=== PATIENT | female | born 1960 | race African-American/Black ===

== ENCOUNTER 2017-09-12 14:09 | Emergency (ER) | payer SELFPAY ==
[~2017-09-12 14:09] MED LIST: ACET325T11 PO; CIPR500T4 PO; CYCL-36 PO; FERR324T4 PO; FOLI1 PO; METO25 PO; PRIL40CA PO; SM A81CH CHEW
[2017-09-12 14:40] VITALS: BP 150/73; PULSE 79; RESP 22; TEMP 98; O2SAT 98
[2017-09-13] MEDS ORDERED: ASPI81TA16 PO (12:30)
[2017-09-13] MEDS ORDERED: PSYCH MEDS (12:33)
[2017-09-13] MEDS ORDERED: PANT40TA3 PO (16:03)
[2017-09-13] MEDS ORDERED: METO25TA3 PO (16:03)
--- NOTE | 2017-10-02 19:17 | PD ---
HPI Chief Complaint: Abdominal Pain Time Seen by Provider: 14:33 Travel History International Travel<30 days: No Contact w/Intl Traveler<30days: No Traveled to known affect area: No History of Present Illness HPI 57-year-old female presents emergency department for evaluation of abdominal pain that bands around her abdomen. This began yesterday. She reports no nausea or vomiting. Uncertain of fever. No diarrhea. Patient denies any abdominal surgeries. Pain is a constant, ache with intermittent sharp stabbing pains. She has no other symptoms to report. PFSH Past Medical History Anxiety: No Cardiovascular Problems: Yes Diminished Hearing: No Hypertension: Yes Reproductive: Yes (PELVIC MASS DX 12/01/05 NEVER FOLLOWED UP WITH DOCTOR) Menopausal: Yes : 3 Para: 3 Tubal Ligation: Yes Past Surgical History Appendectomy: No Cardiac Surgery: Yes (HEART VALVE REPLACEMENT) Social History Alcohol Use: Yes (SIX PACK ON THE WEEKENDS) Tobacco Use: Yes (PACK DAILY) Substance Use: No Allergies-Medications (Allergen,Severity, Reaction): Coded Allergies: No Known Allergies (Verified Allergy, Unknown, 09/13/17) Reported Meds & Prescriptions Reported Meds & Active Scripts Active Pantoprazole (Pantoprazole Sodium) 40 Mg Tab 40 Mg PO DAILY 30 Days Metoprolol Tartrate 25 Mg Tab 25 Mg PO Q12HR 30 Days Reported [Psych Meds] Aspirin Adult Low Strength (Aspirin) 81 Mg Tabdr 81 Mg PO DAILY Review of Systems Except as stated in HPI: all other systems reviewed are Neg Physical Exam Narrative This is a well-nourished female patient. she appears nontoxic. She has even unlabored respirations. Her heart rate is normal. She has no obvious deformities. She walks with a non-ataxic gait. She speaks to me clearly. MDM Medical Decision Making Medical Screen Exam Complete: Yes Emergency Medical Condition: Yes Medical Record Reviewed: Yes Differential Diagnosis Cholecystitis versus pancreatitis versus gastritis Narrative Course 57-year-old female presents emergency department for evaluation of abdominal pain. Patient appears without distress. Her vital signs are stable. Workup is initiated in triage. Prior to patient being placed in a medical bed, patient chooses to leave. AMA: The risks of leaving against medical advice without further evaluation treatment were discussed with the patient. These risks include cardiac dysfunction, cardiac dysrhythmia, possible heart attack, possible stroke or . The patient indicated understanding of these risks and appeared to have the capacity to make this decision. Diagnosis Primary Impression: Abdominal pain Patient Instructions: General Instructions Departure Forms: Tests/Procedures Disposition: 07 AGAINST MEDICAL ADVICE Condition: Stable JoséYsabel TIPTON Oct 02, 2017 19:16
== END 2017-09-12 16:06 | disposition left against medical advice (07) ==
LOC: NED 14:09
DX: R10.9 Unspecified abdominal pain (principal); I10 Essential (primary) hypertension; F17.210 Nicotine dependence, cigarettes, uncomplicated
CPT/HCPCS: 99281

== ENCOUNTER 2017-09-12 18:07 | Observation (INO) | payer SELFPAY ==
[2017-09-12 18:25] VITALS: BP 154/80; PULSE 78; RESP 20; TEMP 97.7; O2SAT 95
[2017-09-12 20:25] LABS: AMORPHOUS SEDIMENT, URINE RARE; BILIRUBIN, URINE NEG (NEG); BLOOD, URINE NEG (NEG); GLUCOSE,URINE NEG (NEG); KETONE, URINE NEG (NEG); MUCUS URINE FEW /lpf (OCC); NITRITE,URINE NEG (NEG); PH, URINE 5.5 (5.0-8.5); SQUAMOUS EPITHELIAL CELL URINE 5 /hpf (0-5); URINE COLOR YELLOW (YELLW/STRAW); URINE LEUKOCYTE ESTERASE NEG (NEG)
[2017-09-12 20:35] LABS: AUTOMATED NEUTROPHIL # 4.3 TH/MM3 (1.8-7.7); BASOPHIL # 0.1 TH/MM3 (0-0.2); EOSINOPHIL # 0.2 TH/MM3 (0-0.4); EOSINOPHIL % 2.2 % (0.0-4.0); HEMATOCRIT 44.2 % (35.0-46.0); HEMOGLOBIN 14.5 GM/DL (11.6-15.3); LYMPH % 36.1 % (9.0-44.0); LYMPHOCYTE # 3.1 TH/MM3 (1.0-4.8); MEAN CELL VOLUME 103.6 FL (80.0-100.0); MEAN CORPUSCULAR HGB CONC 32.8 % (32.0-36.0); MEAN PLATELET VOLUME 9.5 FL (7.0-11.0); MONO % 10.5 % (0.0-8.0); MONOCYTE # 0.9 TH/MM3 (0-0.9); NEUT % 50.2 % (16.0-70.0); PLATELET COUNT 216 TH/MM3 (150-450); RED BLOOD COUNT 4.26 MIL/MM3 (4.00-5.30); RED CELL DISTRIBUTION WIDTH 12.9 % (11.6-17.2); WHITE BLOOD COUNT 8.5 TH/MM3 (4.0-11.0)
[2017-09-12 20:37] LABS: PROTHROMBIN TIME - PATIENT 10.1 SEC (9.8-11.6)
[2017-09-12 20:59] LABS: ALT (GPT) 10 U/L (10-53)
[2017-09-12 21:00] LABS: ALBUMIN 3.9 GM/DL (3.4-5.0); AST (GOT) 17 U/L (15-37); BICARBONATE 23.2 MEQ/L (21.0-32.0); BLOOD UREA NITROGEN 14 MG/DL (7-18); CALCIUM 9.3 MG/DL (8.5-10.1); CHLORIDE 108 MEQ/L (98-107); CREATININE 0.83 MG/DL (0.50-1.00); GLOMERULAR FILTRATION RATE 86 ML/MIN (>89); GLUCOSE,RANDOM 78 MG/DL (74-106); SODIUM (NA) 138 MEQ/L (136-145)
[2017-09-12 21:01] LABS: ALKALINE PHOSPHATASE 91 U/L (45-117); TOTAL BILIRUBIN ADULT 0.4 MG/DL (0.2-1.0); TOTAL PROTEIN 8.3 GM/DL (6.4-8.2)
[2017-09-12 22:01] LABS: TOXIC VACUOLATION PRESENT (NONE SEEN)
--- NOTE | 2017-09-12 22:55 | PD ---
HPI Chief Complaint: Abdominal Pain Time Seen by Provider: 22:43 Travel History International Travel<30 days: No Contact w/Intl Traveler<30days: No Traveled to known affect area: No History of Present Illness HPI The patient is a 57-year-old [place] female who presents to the emergency department for 2 days of bilateral upper thoracic back pain that radiates around to the front of the chest. The patient states the pain is sharp , intermittent, lasts approximately 2 minutes, is worse with turning to the left as well as deep inspiration. She does note a productive cough producing white sputum that is chronic. She does have a history of tobacco use. She denies any nausea, vomiting, diarrhea, or upper abdominal pain. The patient does have a history of CAD with previous CABG, however, states this pain is significantly different. She denies any shortness of breath or diaphoresis. Her symptoms are not exertional. She does complain of bilateral leg pain with walking, however, notes that is chronic. The patient states her CABG was performed in [place], [place], she does not have a local primary physician. The patient states she is currently homeless. PFSH Past Medical History Anxiety: No Cardiovascular Problems: Yes Diminished Hearing: No Hypertension: Yes Reproductive: Yes (PELVIC MASS DX 12/01/05 NEVER FOLLOWED UP WITH DOCTOR) Menopausal: Yes : 3 Para: 3 Tubal Ligation: Yes Past Surgical History Appendectomy: No Cardiac Surgery: Yes (HEART VALVE REPLACEMENT) Social History Alcohol Use: Yes (SIX PACK ON THE WEEKENDS) Tobacco Use: Yes (PACK DAILY) Substance Use: No Allergies-Medications (Allergen,Severity, Reaction): Coded Allergies: No Known Allergies (Verified Allergy, Unknown, 09/13/17) Reported Meds & Prescriptions Reported Meds & Active Scripts Active Cipro (Ciprofloxacin HCl) 500 Mg Tab 500 Mg PO BID Metoprolol Tartrate 25 mg (Metoprolol Tartrate) 25 Mg Tab 1 Tab PO DAILY Flexeril (Cyclobenzaprine HCl) 10 Mg Tab 10 Mg PO TID Prilosec 40 mg cap (Omeprazole) 40 Mg Cap 40 Mg PO DAILY Reported Tylenol 325 Mg Tab (Acetaminophen) 325 Mg Tab 325 Mg PO Q6H PRN Folate 1 Mg Tab (Folic Acid) 1 Mg Tab 1 Mg PO DAILY Ferrous Sulfate 325 Mg Tab 325 Mg PO BID Aspirin 81 Mg Tab 81 Mg CHEW DAILY Review of Systems Except as stated in HPI: all other systems reviewed are Neg General / Constitutional: No: Fever HENT: No: Lightheadedness Cardiovascular: Positive: Chest Pain or Discomfort Respiratory: No: Shortness of Breath Gastrointestinal: No: Nausea, Vomiting, Abdominal Pain Musculoskeletal: Positive: Pain, No: Edema Neurologic: No: Dizziness Physical Exam Narrative GENERAL: Awake, alert, pleasant 57-year-old female who appears her stated age and is in no acute respiratory distress. SKIN: Focused skin assessment warm/dry. HEAD: Atraumatic. Normocephalic. EYES: No injection or drainage.. ENT: No nasal bleeding or discharge. Mucous membranes pink and moist. NECK: Trachea midline. No JVD. CARDIOVASCULAR: Regular rate and rhythm. No murmur appreciated. Well-healed sternal scar. RESPIRATORY: No accessory muscle use. Clear to auscultation. Breath sounds equal bilaterally. GASTROINTESTINAL: Abdomen soft, non-tender, nondistended. Negative Elena's. No guarding or rigidity. Back: No tenderness over thoracic or lumbar vertebrae. Mild tenderness in the right para rhomboid area. Rotation of the thorax reproduces symptoms. MUSCULOSKELETAL: No obvious deformities. No clubbing. No cyanosis. No edema. NEUROLOGICAL: Awake and alert. No obvious cranial nerve deficits. Motor grossly within normal limits. Normal speech. PSYCHIATRIC: Appropriate mood and affect; insight and judgment normal. Data Data Last Documented VS Vital Signs Date Time Temp Pulse Resp B/P (MAP) Pulse Ox O2 Delivery O2 Flow Rate FiO2 09/12/17 18:25 97.7 78 20 154/80 (104) 95 Orders Orders Complete Blood Count With Diff (09/12/17 18:27) Comprehensive Metabolic Panel (09/12/17 18:27) Lipase (09/12/17 18:27) Prothrombin Time / Inr (Pt) (09/12/17 18:27) Act Partial Throm Time (Ptt) (09/12/17 18:27) Urinalysis - C+S If Indicated (09/12/17 18:27) Electrocardiogram (09/12/17 18:27) Chest, Single Ap (09/12/17 ) Troponin I (09/12/17 22:49) Creatine Kinase (Cpk) (09/12/17 22:49) Acetamin-Hydrocod 325-5 Mg ([place] 5-325 (09/12/17 23:00) Aspirin Chew (Aspirin Chew) (09/12/17 23:00) Nitroglycerin 2% Oint (Nitroglycerin 2% (09/13/17 00:00) Place In Observation (09/13/17 ) Vital Signs (Adult) Q4H (09/13/17 00:17) Activity Oob With Assistance (09/13/17 00:17) Rn Psych / Telemetry .CONTINUOUS (09/13/17 00:17) Diet Heart Healthy (09/13/17 Breakfast) Sodium Chloride 0.9% Flush (Ns Flush) (09/13/17 00:30) Sodium Chloride 0.9% Flush (Ns Flush) (09/13/17 09:00) Creatine Kinase (Cpk) (09/13/17 05:00) Creatine Kinase (Cpk) (09/13/17 11:00) Troponin I (09/13/17 05:00) Troponin I (09/13/17 11:00) Electrocardiogram (09/13/17 05:00) Electrocardiogram (09/13/17 11:00) Case Management Consult (09/13/17 00:17) Naloxone Inj (Narcan Inj) (09/13/17 00:30) Consult Cardiology (09/13/17 ) Aspirin Ec (Ecotrin Ec) (09/13/17 09:00) Nitroglycerin Sl (Nitrostat Sl) (09/13/17 00:30) Admit Order (Ed Use Only) (09/13/17 00:21) Labs Laboratory Tests Test 09/12/17 19:04 09/12/17 23:08 White Blood Count 8.5 TH/MM3 Red Blood Count 4.26 MIL/MM3 Hemoglobin 14.5 GM/DL Hematocrit 44.2 % Mean Corpuscular Volume 103.6 FL Mean Corpuscular Hemoglobin 34.0 PG Mean Corpuscular Hemoglobin Concent 32.8 % Red Cell Distribution Width 12.9 % Platelet Count 216 TH/MM3 Mean Platelet Volume 9.5 FL Neutrophils (%) (Auto) 50.2 % Lymphocytes (%) (Auto) 36.1 % Monocytes (%) (Auto) 10.5 % Eosinophils (%) (Auto) 2.2 % Basophils (%) (Auto) 1.0 % Neutrophils # (Auto) 4.3 TH/MM3 Lymphocytes # (Auto) 3.1 TH/MM3 Monocytes # (Auto) 0.9 TH/MM3 Eosinophils # (Auto) 0.2 TH/MM3 Basophils # (Auto) 0.1 TH/MM3 CBC Comment AUTO DIFF Differential Comment AUTO DIFF CONFIRMED Toxic Vacuolation PRESENT Platelet Estimate NORMAL Platelet Morphology Comment NORMAL Prothrombin Time 10.1 SEC Prothromb Time International Ratio 1.0 RATIO Activated Partial Thromboplast Time 22.8 SEC Urine Color YELLOW Urine Turbidity CLEAR Urine pH 5.5 Urine Specific [place] 1.020 Urine Protein NEG mg/dL Urine Glucose (UA) NEG mg/dL Urine Ketones NEG mg/dL Urine Occult Blood NEG Urine Nitrite NEG Urine Bilirubin NEG Urine Urobilinogen 2.0 MG/DL Urine Leukocyte Esterase NEG Urine RBC 3 /hpf Urine WBC 1 /hpf Urine Squamous Epithelial Cells 5 /hpf Urine Amorphous Sediment RARE Urine Mucus FEW /lpf Microscopic Urinalysis Comment CULT NOT INDICATED Blood Urea Nitrogen 14 MG/DL Creatinine 0.83 MG/DL Random Glucose 78 MG/DL Total Protein 8.3 GM/DL Albumin 3.9 GM/DL Calcium Level 9.3 MG/DL Alkaline Phosphatase 91 U/L Aspartate Amino Transf (AST/SGOT) 17 U/L Alanine Aminotransferase (ALT/SGPT) 10 U/L Total Bilirubin 0.4 MG/DL Sodium Level 138 MEQ/L Potassium Level 4.0 MEQ/L Chloride Level 108 MEQ/L Carbon Dioxide Level 23.2 MEQ/L Anion Gap 7 MEQ/L Estimat Glomerular Filtration Rate 86 ML/MIN Lipase 147 U/L Total Creatine Kinase 162 U/L Troponin I 0.08 NG/ML MDM Medical Decision Making Medical Screen Exam Complete: Yes Emergency Medical Condition: Yes Medical Record Reviewed: Yes Interpretation(s) EKG reveals normal sinus rhythm with a rate of 70. Inverted T waves noted in lead V4, V5, V6, 1, and aVL. No significant changes compared to EKG performed on June 04, 2014. Last Impressions Chest X-Ray 09/12/17 0000 Signed Impressions: Service Date/Time: Tuesday, September 12, 2017 22:57 - CONCLUSION: Cardiomegaly. The lungs are clear. Heriberto Jacobo MD Laboratory Tests Test 09/12/17 19:04 09/12/17 23:08 White Blood Count 8.5 TH/MM3 Red Blood Count 4.26 MIL/MM3 Hemoglobin 14.5 GM/DL Hematocrit 44.2 % Mean Corpuscular Volume 103.6 FL Mean Corpuscular Hemoglobin 34.0 PG Mean Corpuscular Hemoglobin Concent 32.8 % Red Cell Distribution Width 12.9 % Platelet Count 216 TH/MM3 Mean Platelet Volume 9.5 FL Neutrophils (%) (Auto) 50.2 % Lymphocytes (%) (Auto) 36.1 % Monocytes (%) (Auto) 10.5 % Eosinophils (%) (Auto) 2.2 % Basophils (%) (Auto) 1.0 % Neutrophils # (Auto) 4.3 TH/MM3 Lymphocytes # (Auto) 3.1 TH/MM3 Monocytes # (Auto) 0.9 TH/MM3 Eosinophils # (Auto) 0.2 TH/MM3 Basophils # (Auto) 0.1 TH/MM3 CBC Comment AUTO DIFF Differential Comment AUTO DIFF CONFIRMED Toxic Vacuolation PRESENT Platelet Estimate NORMAL Platelet Morphology Comment NORMAL Prothrombin Time 10.1 SEC Prothromb Time International Ratio 1.0 RATIO Activated Partial Thromboplast Time 22.8 SEC Urine Color YELLOW Urine Turbidity CLEAR Urine pH 5.5 Urine Specific [place] 1.020 Urine Protein NEG mg/dL Urine Glucose (UA) NEG mg/dL Urine Ketones NEG mg/dL Urine Occult Blood NEG Urine Nitrite NEG Urine Bilirubin NEG Urine Urobilinogen 2.0 MG/DL Urine Leukocyte Esterase NEG Urine RBC 3 /hpf Urine WBC 1 /hpf Urine Squamous Epithelial Cells 5 /hpf Urine Amorphous Sediment RARE Urine Mucus FEW /lpf Microscopic Urinalysis Comment CULT NOT INDICATED Blood Urea Nitrogen 14 MG/DL Creatinine 0.83 MG/DL Random Glucose 78 MG/DL Total Protein 8.3 GM/DL Albumin 3.9 GM/DL Calcium Level 9.3 MG/DL Alkaline Phosphatase 91 U/L Aspartate Amino Transf (AST/SGOT) 17 U/L Alanine Aminotransferase (ALT/SGPT) 10 U/L Total Bilirubin 0.4 MG/DL Sodium Level 138 MEQ/L Potassium Level 4.0 MEQ/L Chloride Level 108 MEQ/L Carbon Dioxide Level 23.2 MEQ/L Anion Gap 7 MEQ/L Estimat Glomerular Filtration Rate 86 ML/MIN Lipase 147 U/L Total Creatine Kinase 162 U/L Troponin I 0.08 NG/ML Differential Diagnosis Differential diagnosis includes thoracic radiculopathy, pneumonia, pleural effusion, pericarditis, pneumonia, ACS, STEMI, GERD, esophageal spasm, atypical cholecystitis. Narrative Course IV was established, labs are drawn and sent, and the patient was placed on cardiac telemetry monitoring and continuous pulse oximetry monitoring. EKG was ordered and interpreted. Chest x-ray was obtained. The patient received aspirin and [place] for pain. The patient's EKG revealed inverted T waves in the lateral leads, no significant changes compared to EKG performed at 2014. Chest x-rays unremarkable. Patient has atypical symptoms, however, has a history of previous CABG, one-vessel her patient, performed in [place], [place], 2012. She states she has not had a stress test or cardiac catheterization since the CABG was performed. Patient does have atypical symptoms, however, troponin is positive at 0.08 and creatinine is normal. She may have chronic troponin leak versus atypical NSTEMI. The patient did receive aspirin, nitro paste was applied. The on-call medical service was paged for admission. Physician Communication Physician Communication [facility] were paged for admission. I discussed the patient with Dr. Ortiz who agrees with admission. Diagnosis Primary Impression: NSTEMI (non-ST elevated myocardial infarction) Additional Impression: Atypical chest pain Admitting Information Admitting Physician Requests: Admit Condition: Stable Dylon Wagoner MD Sep 12, 2017 22:55
[2017-09-12] MEDS ORDERED: ASPIRIN 81 MG CHEW TAB CHEW ONE (23:00)
[2017-09-12] MEDS ORDERED: ACETAMINOPHEN/HYDROcodone 325 MG/5 MG TAB PO ONE (23:00)
--- NOTE | 2017-09-12 23:14 | RADRPT ---
EXAM DATE/TIME: 09/12/2017 22:57 [facility] COMPARISON: No previous studies available for comparison. INDICATIONS : Chest and back pain. MEDICAL HISTORY : None. SURGICAL HISTORY : CABG. ENCOUNTER: Initial ACUITY: 2 days PAIN SCORE: 9/10 LOCATION: Bilateral chest FINDINGS: A single view of the chest demonstrates the lungs to be symmetrically aerated without evidence of mas s, infiltrate or effusion. The heart is mildly enlarged. Central bronchopulmonary markings well del ineated. Evidence of prior median sternotomy with discontinuity of one of the upper wire sutures. Os seous structures are intact. CONCLUSION: Cardiomegaly. The lungs are clear. Heriberto Jacobo MD on September 12, 2017 at 23:12 Board Certified Radiologist. This report was verified electronically.
[2017-09-12 23:42] LABS: TROPONIN I 0.08 NG/ML (0.02-0.05)
[2017-09-13] MEDS ORDERED: NITROGLYCERIN 2% OINT 1 GM PACKET TOPICAL ONE
[2017-09-13] MEDS ORDERED: NITROGLYCERIN 0.4 MG SL 25 TABS/BTL SL PRN (00:30)
[2017-09-13] MEDS ORDERED: SODIUM CHLORIDE 0.9% FLUSH 10 ML FLUSH IV FLUSH PRN (00:30)
[2017-09-13] MEDS ORDERED: NALOXONE HCL 0.4 MG/ML AMP IV PUSH PRN (00:30)
[2017-09-13 05:53] VITALS: BP 134/84; PULSE 87; RESP 18; TEMP 98.6; O2SAT 98
[2017-09-13 06:22] LABS: TROPONIN I 0.08 NG/ML (0.02-0.05)
--- NOTE | 2017-09-13 08:12 | HHI.HP ---
[facility] No Primary Care Physician Admission Diagnosis NSTEMI, elevated troponin, atypical chest pain Diagnoses: Chief Complaint: chest pain Travel History International Travel<30 Days: No Contact w/Intl Traveler <30 Da: No Traveled to Known Affected Are: No History of Present Illness patient is a 58 years old female with history of Valvular surgery - Porcine valve in 2012, she is not sure about having an CABG procedure done who lis from [place] and came here for a a week ago and currently homelss- lives in the streets who came to ER last evening complaining of anterior chest pain radiation to the back - intermittent- no associated shortness of breath or nausea, vomiting or diaphoresis, Denies fever or chills Persistence prompted coming to ER and was noted to have indeterminate troponin and mild STTw changes in precordial and lateral leads Admtted for further work up Review of Systems Constitutional: DENIES: Fever, Weight loss, Chills, Change in appetite Eyes: DENIES: Blurred vision, Double Vision Ears, nose, mouth, throat: DENIES: Tinnitus, Ear Pain, Epistaxis, Odynophagia Respiratory: DENIES: Cough, Hemoptysis, Sputum production, Shortness of breath Cardiovascular: DENIES: Chest pain, Palpitations, Dyspnea on Exertion, Lower Extremity Edema, Orthopnea Gastrointestinal: DENIES: Black stools, Bloody stools, Difficulty Swallowing, Anorexia Genitourinary: DENIES: Urgency, Hematuria, Vaginal discharge Musculoskeletal: DENIES: Joint pain, Stiffness Integumentary: DENIES: Pruritus Hematologic/lymphatic: DENIES: Bruising Immunologic/allergic: DENIES: Urticaria Neurologic: DENIES: Headache, Speech Problems, Tremor Psychiatric: DENIES: Suicidal Ideation, Homicidal Ideation Past Family Social History Past Medical History history of valvular surgery- porcine valve states take BP meds Past Surgical History Porcine valve surgery Reported Medications Flexeril, Iron sulfate, LOpressor 25 mg daily, ASA, Prilosec Folic acid also state she was on water pills, K - "ran out" goes to [facility] Allergies: Coded Allergies: No Known Allergies (Verified Allergy, Unknown, 3/21/18) Family History non contributory Social History lives by herself- currently homeless smokes 3-4 cigarettes denies alcohol or recreational drug use Physical Exam Vital Signs Vital Signs Date Time Temp Pulse Resp B/P (MAP) Pulse Ox O2 Delivery O2 Flow Rate FiO2 09/13/17 05:53 98.6 87 18 134/84 (101) 98 Room Air 09/12/17 18:25 97.7 78 20 154/80 (104) 95 Physical Exam GENERAL: in no apparent distress. SKIN: No rashes, ecchymoses or lesions. Cool and dry. HEAD: Atraumatic. Normocephalic. No temporal or scalp tenderness. EYES: Pupils equal round and reactive. Extraocular motions intact. No scleral icterus. No injection or drainage. ENT: Nose without bleedingThroat without erythema, tonsillar hypertrophy or exudate. Uvula midline. Airway patent. NECK: Trachea midline. No JVD or lymphadenopathy. Supple, nontender, no meningeal signs. CARDIOVASCULAR: Regular rate and rhythm without murmurs, gallops, or rubs. RESPIRATORY: Clear to auscultation. Breath sounds equal bilaterally. No wheezes , rales, or rhonchi. GASTROINTESTINAL: Abdomen soft, non-tender, nondistended. No hepato-splenomegaly , or palpable masses. No guarding. MUSCULOSKELETAL: Extremities without clubbing, cyanosis, or edema. No joint tenderness, effusion, or edema noted. No calf tenderness. Negative Homans sign bilaterally. NEUROLOGICAL: Awake and alert. Cranial nerves II through XII intact. Motor and sensory grossly within normal limits. Five out of 5 muscle strength in all muscle groups. Normal speech. Laboratory Laboratory Tests Test 09/12/17 19:04 09/12/17 23:08 09/13/17 05:28 White Blood Count 8.5 Red Blood Count 4.26 Hemoglobin 14.5 Hematocrit 44.2 Mean Corpuscular Volume 103.6 Mean Corpuscular Hemoglobin 34.0 Mean Corpuscular Hemoglobin Concent 32.8 Red Cell Distribution Width 12.9 Platelet Count 216 Mean Platelet Volume 9.5 Neutrophils (%) (Auto) 50.2 Lymphocytes (%) (Auto) 36.1 Monocytes (%) (Auto) 10.5 Eosinophils (%) (Auto) 2.2 Basophils (%) (Auto) 1.0 Neutrophils # (Auto) 4.3 Lymphocytes # (Auto) 3.1 Monocytes # (Auto) 0.9 Eosinophils # (Auto) 0.2 Basophils # (Auto) 0.1 CBC Comment AUTO DIFF Differential Comment AUTO DIFF CONFIRMED Toxic Vacuolation PRESENT Platelet Estimate NORMAL Platelet Morphology Comment NORMAL Prothrombin Time 10.1 Prothromb Time International Ratio 1.0 Activated Partial Thromboplast Time 22.8 Urine Color YELLOW Urine Turbidity CLEAR Urine pH 5.5 Urine Specific [place] 1.020 Urine Protein NEG Urine Glucose (UA) NEG Urine Ketones NEG Urine Occult Blood NEG Urine Nitrite NEG Urine Bilirubin NEG Urine Urobilinogen 2.0 Urine Leukocyte Esterase NEG Urine RBC 3 Urine WBC 1 Urine Squamous Epithelial Cells 5 Urine Amorphous Sediment RARE Urine Mucus FEW Microscopic Urinalysis Comment CULT NOT INDICATED Blood Urea Nitrogen 14 Creatinine 0.83 Random Glucose 78 Total Protein 8.3 Albumin 3.9 Calcium Level 9.3 Alkaline Phosphatase 91 Aspartate Amino Transf (AST/SGOT) 17 Alanine Aminotransferase (ALT/SGPT) 10 Total Bilirubin 0.4 Sodium Level 138 Potassium Level 4.0 Chloride Level 108 Carbon Dioxide Level 23.2 Anion Gap 7 Estimat Glomerular Filtration Rate 86 Lipase 147 Total Creatine Kinase 162 135 Troponin I 0.08 0.08 Result Diagram: 09/12/17 1904 09/12/17 1904 Imaging Last Impressions Chest X-Ray 09/12/17 0000 Signed Impressions: Service Date/Time: Tuesday, September 12, 2017 22:57 - CONCLUSION: Cardiomegaly. The lungs are clear. MD Denise Machado VTE Risk Assessment Caprini VTE Risk Assessment: Mod/High Risk (score >= 2) Caprini Risk Assessment Model Point Value = 1 Point Value = 2 Point Value = 3 Point Value = 5 Age 41-60 Minor surgery BMI > 25 kg/m2 Swollen legs Varicose veins or History of unexplained or recurrent spontaneous Oral contraceptives or hormone replacement Sepsis (< 1 month) Serious lung disease, including pneumonia (< 1 month) Abnormal pulmonary function Acute myocardial infarction Congestive heart failure (< 1 month) History of inflammatory bowel disease Medical patient at bed rest Age 61-74 Arthroscopic surgery Major open surgery (> 45 min) Laparoscopic surgery (> 45 min) Malignancy Confined to bed (> 72 hours) Immobilizing plaster cast Central venous access Age >= 75 History of VTE Family history of VTE Factor V Leiden Prothrombin [id number] Lupus anticoagulant Anticardiolipin antibodies Elevated serum homocysteine Heparin-induced thrombocytopenia Other congenital or acquired thrombophilia Stroke (< 1 month) Elective arthroplasty Hip, pelvis, or leg fracture Acute spinal cord injury (< 1 month) Prophylaxis Regimen Total Risk Factor Score Risk Level Prophylaxis Regimen 0-1 Low Early ambulation 2 Moderate Order ONE of the following: *Sequential Compression Device (SCD) *Heparin 5000 units SQ BID 3-4 Higher Order ONE of the following medications: *Heparin 5000 units SQ TID *Enoxaparin/Lovenox 40 mg SQ daily (WT < 150 kg, CrCl > 30 mL/min) *Enoxaparin/Lovenox 30 mg SQ daily (WT < 150 kg, CrCl > 10-29 mL/min) *Enoxaparin/Lovenox 30 mg SQ BID (WT < 150 kg, CrCl > 30 mL/min) AND/OR *Sequential Compression Device (SCD) 5 or more Highest Order ONE of the following medications: *Heparin 5000 units SQ TID (Preferred with Epidurals) *Enoxaparin/Lovenox 40 mg SQ daily (WT < 150 kg, CrCl > 30 mL/min) *Enoxaparin/Lovenox 30 mg SQ daily (WT < 150 kg, CrCl > 10-29 mL/min) *Enoxaparin/Lovenox 30 mg SQ BID (WT < 150 kg, CrCl > 30 mL/min) AND *Sequential Compression Device (SCD) Assessment and Plan Assessment and Plan 57 years old female Atypical chest pain with EKG changes suggestive of ischemic changes - STTW flattening History of Valvular heart surgery 2013 History of HYpertension ASA, BB, nitrates check Echo, ff troponin cardiology consulted- will defer to them whether to proceed with myocardial perfusion study vs cath check lipid panel keep NPO- for further work up- myocardial perfusion study vs. cath Smoker- counselled HOmeless- CM consult- pt goes to [facility] get records from [facility] Code Status full Discussed Condition With patient Physician Certification 2 Midnight Certification Type: Admission for Inpatient Services Order for Inpatient Services The services are ordered in accordance with Medicare regulations or non- Medicare payer requirements, as applicable. In the case of services not specified as inpatient-only, they are appropriately provided as inpatient services in accordance with the 2-midnight benchmark. Estimated LOS (days): 3 days is the estimated time the patient will need to remain in the hospital, assuming treatment plan goals are met and no additional complications. Post-Hospital Plan: Not yet determined Eileen Preston MD Sep 13, 2017 08:12
--- NOTE | 2017-09-13 08:31 | MB ---
cc: Enrique Adamson MD DATE: INDICATION: Chest pain. HISTORY OF PRESENT ILLNESS: This is a 57-year-old female with a prior history of valve replacement, bioprosthetic in addition to probable single vessel bypass, according to the records, who presents now with 2 days of upper back pain and some mild chest pain. The patient states that she has symptoms both with exertion and without. It primarily starts in the back, but radiates towards the front. She also states that it is a little bit worse with turning and deep inspiration. She has had recent productive cough. She does not have a local primary physician or report specialist. She had her surgery in 2012, back in [place]. Troponin is in the intermediate range. We are consulted for further recommendations. PAST MEDICAL HISTORY: Pelvic mass diagnosed in 2005, history of valve replacement, probable single vessel bypass for coronary artery disease. SOCIAL HISTORY: Drinks a 6 pack on the weekends. Daily tobacco use, a pack a day. ALLERGIES: NO KNOWN DRUG ALLERGIES. MEDICATIONS: Active, Cipro, metoprolol, Flexeril, Prilosec. REVIEW OF SYSTEMS: A 12-point review of systems was performed and is negative unless otherwise as noted in the history of present illness. PHYSICAL EXAM: VITAL SIGNS: Temperature 98, pulse 87, blood pressure 134/84 mmHg. GENERAL: Alert and oriented x 3 in no acute distress. HEENT: Exam shows pupils reactive to light and accommodation. Extraocular muscles intact. NECK: No elevation of jugular venous distention. No thyromegaly or lymphadenopathy. No carotid bruits. LUNGS: Clear to auscultation bilaterally. CARDIOVASCULAR: Regular rate and rhythm without murmurs, rubs or gallops. 2/6 systolic murmur. ABDOMEN: Exam is nontender and nondistended with good bowel sounds. No hepatosplenomegaly. EXTREMITIES: Show no clubbing, cyanosis or edema. Good peripheral pulses. NEUROLOGIC: Cranial nerves intact. Motor, sensory grossly intact. LABORATORY DATA: WBC 8.5, hemoglobin 14.5, platelet count is 216. INR is 1. Sodium 138, potassium 4.0, BUN 14, creatinine 0.83. Troponin, 0.08 and 0.08. Electrocardiogram shows sinus rhythm, T-wave inversions laterally. ASSESSMENT AND PLAN: 1. Chest pain. 2. Probable history of coronary artery disease and single vessel bypass. 3. Bioprosthetic valve replacement. PLAN: She has somewhat atypical symptoms with and without exertion with change with inspiration and movement. Her troponins are flat, but in the intermediate range. Electrocardiogram shows T-wave inversions, but they are persistent and may be related to LVH with strain pattern. There are no dynamic changes. She is not a great historian. It would be ideal to try to get a hold of her prior records from [place]. At this point, we will proceed with Zaheer. We will make her n.p.o. If that comes back negative, we can treat her more conservatively. If it comes back with a moderate defect, then we will put her potential for cardiac catheterization later today. We will check a 2-D echocardiogram given her murmur and history of valve replacement. Enrique Adamson MD KAMLA/DL , 08:00 AM , 08:30 AM
[2017-09-13] MEDS ORDERED: ASPIRIN 81 MG CHEW TAB CHEW SCH (09:00)
[2017-09-13] MEDS ORDERED: ASPIRIN EC 325 MG TABEC PO SCH (09:00)
[2017-09-13] MEDS ORDERED: SODIUM CHLORIDE 0.9% FLUSH 10 ML FLUSH IV FLUSH SCH (09:00)
[2017-09-13] MEDS ORDERED: METOPROLOL TARTRATE 25 MG TAB PO SCH (09:00)
[2017-09-13] MEDS ORDERED: PANTOPRAZOLE SOD 40 MG DELAYED RELEASE TAB PO SCH (09:00)
[2017-09-13] MEDS ORDERED: REGADENOSON INJ 0.4 MG/5 ML SYR ONE (10:10)
--- NOTE | 2017-09-13 12:04 | RADRPT ---
EXAM DATE/TIME: 09/13/2017 09:39 [facility] COMPARISON: No previous studies available for comparison. INDICATIONS : Mid chest pain for one day. Angina. DOSE: 25.9 mCi Tc99m Myoview at stress. 8.1 mCi Tc99m Myoview at rest. 0.4 mg Lexiscan STRESS SYMPTOMS: Short of breath. EJECTION FRACTION: 52% MEDICAL HISTORY : Cardiovascular disease. Hypertension. SURGICAL HISTORY : CABG Tubal ligation. ENCOUNTER: Initial ACUITY: 1 day PAIN SCALE: 5/10 LOCATION: Midsternal chest TECHNIQUE: The patient underwent pharmacologic stress with infusion of prescribed dose. Continuous ECG tracing was monitored during stress. Gated SPECT imaging was performed after stress and conventional SPECT i maging was performed at rest. The examination was performed on a SPECT/CT scanner, both attenuation and non-corrected datasets were reviewed. FINDINGS: DISTRIBUTION: The maximum perfused segment at stress is in the septal wall. PERFUSION STUDY: Decreased perfusion during stress in the anterolateral wall. GATED STUDY: There is intact wall motion and thickening without hypokinetic or dyskinetic segments. CONCLUSION: 1. Findings consistent with anterolateral wall ischemia.\ 2. Intact wall motion with EF of 52%. RISK CATEGORY: Low (<1% Annual Mortality Rate) Terrell Hobbs MD on September 13, 2017 at 11:57 Board Certified Radiologist. This report was verified electronically.
[2017-09-13] MEDS ORDERED: ASPI81TA16 PO (12:30)
[2017-09-13] MEDS ORDERED: PSYCH MEDS (12:33)
[2017-09-13 12:58] LABS: CHOLESTEROL/ HDL RATIO 2.59 RATIO; TROPONIN I 0.07 NG/ML (0.02-0.05)
[2017-09-13] MEDS: CYCLOBENZAPRINE HCL 10 MG TAB PO SCH ×2 (13:00→13:38)
--- NOTE | 2017-09-13 13:24 | PD.CARD.PN ---
Objective Medications Current Medications Medications (Trade) Dose Ordered Sig/Tere Route Start Time Stop Time Status Last Admin (NS Flush) 2 ml UNSCH PRN IV FLUSH 09/13/17 00:30 (NS Flush) 2 ml BID IV FLUSH 09/13/17 09:00 (Narcan Inj) 0.4 mg UNSCH PRN IV PUSH 09/13/17 00:30 (Ecotrin Ec) 325 mg DAILY PO 09/13/17 09:00 (Nitrostat Sl) 0.4 mg Q5M PRN SL 09/13/17 00:30 (Flexeril) 10 mg TID PO 09/13/17 09:00 (Protonix) 40 mg DAILY PO 09/13/17 09:00 (Lopressor) 25 mg Q12HR PO 09/13/17 09:00 (Nitroglycerin 2% Oint) 0.5 inch Q6HR TOPICAL 09/13/17 13:30 UNV Vital Signs / I&O Vital Signs Date Time Temp Pulse Resp B/P (MAP) Pulse Ox O2 Delivery O2 Flow Rate FiO2 09/13/17 05:53 98.6 87 18 134/84 (101) 98 Room Air 09/12/17 18:25 97.7 78 20 154/80 (104) 95 Laboratory Laboratory Tests Test 09/12/17 19:04 09/12/17 23:08 09/13/17 05:28 09/13/17 11:45 White Blood Count 8.5 TH/MM3 Red Blood Count 4.26 MIL/MM3 Hemoglobin 14.5 GM/DL Hematocrit 44.2 % Mean Corpuscular Volume 103.6 FL Mean Corpuscular Hemoglobin 34.0 PG Mean Corpuscular Hemoglobin Concent 32.8 % Red Cell Distribution Width 12.9 % Platelet Count 216 TH/MM3 Mean Platelet Volume 9.5 FL Neutrophils (%) (Auto) 50.2 % Lymphocytes (%) (Auto) 36.1 % Monocytes (%) (Auto) 10.5 % Eosinophils (%) (Auto) 2.2 % Basophils (%) (Auto) 1.0 % Neutrophils # (Auto) 4.3 TH/MM3 Lymphocytes # (Auto) 3.1 TH/MM3 Monocytes # (Auto) 0.9 TH/MM3 Eosinophils # (Auto) 0.2 TH/MM3 Basophils # (Auto) 0.1 TH/MM3 CBC Comment AUTO DIFF Differential Comment AUTO DIFF CONFIRMED Toxic Vacuolation PRESENT Platelet Estimate NORMAL Platelet Morphology Comment NORMAL Prothrombin Time 10.1 SEC Prothromb Time International Ratio 1.0 RATIO Activated Partial Thromboplast Time 22.8 SEC Urine Color YELLOW Urine Turbidity CLEAR Urine pH 5.5 Urine Specific [place] 1.020 Urine Protein NEG mg/dL Urine Glucose (UA) NEG mg/dL Urine Ketones NEG mg/dL Urine Occult Blood NEG Urine Nitrite NEG Urine Bilirubin NEG Urine Urobilinogen 2.0 MG/DL Urine Leukocyte Esterase NEG Urine RBC 3 /hpf Urine WBC 1 /hpf Urine Squamous Epithelial Cells 5 /hpf Urine Amorphous Sediment RARE Urine Mucus FEW /lpf Microscopic Urinalysis Comment CULT NOT INDICATED Blood Urea Nitrogen 14 MG/DL Creatinine 0.83 MG/DL Random Glucose 78 MG/DL Total Protein 8.3 GM/DL Albumin 3.9 GM/DL Calcium Level 9.3 MG/DL Alkaline Phosphatase 91 U/L Aspartate Amino Transf (AST/SGOT) 17 U/L Alanine Aminotransferase (ALT/SGPT) 10 U/L Total Bilirubin 0.4 MG/DL Sodium Level 138 MEQ/L Potassium Level 4.0 MEQ/L Chloride Level 108 MEQ/L Carbon Dioxide Level 23.2 MEQ/L Anion Gap 7 MEQ/L Estimat Glomerular Filtration Rate 86 ML/MIN Lipase 147 U/L Total Creatine Kinase 162 U/L 135 U/L 123 U/L Troponin I 0.08 NG/ML 0.08 NG/ML 0.07 NG/ML Triglycerides Level 87 MG/DL Cholesterol Level 148 MG/DL LDL Cholesterol 74 MG/DL HDL Cholesterol 57.0 MG/DL Cholesterol/HDL Ratio 2.59 RATIO Imaging Last 24 hours Impressions Myocardial Perfusion Scan Nuc Med 09/13/17 0000 Signed Impressions: Service Date/Time: Wednesday, September 13, 2017 09:39 - CONCLUSION: 1. Findings consistent with anterolateral wall ischemia.\ 2. Intact wall motion with EF of 52%%. RISK CATEGORY: Low (<1%% Annual Mortality Rate) Terrell Hobbs MD Assessment and Plan Assessment and Plan -------- personally reviewed SPECT. small primarily fixed apical defect with subdiaphragmatic attenuation consistent with apical infarct pattern without significant (maybe mild) ischemia. med mgt atypical symptoms suspect noncardiac cause will sign off call with questions ok to dc from cardio standpoint fu with PCP Enrique Adamson MD Sep 13, 2017 13:24
[2017-09-13] MEDS ORDERED: NITROGLYCERIN 2% OINT 1 GM PACKET TOPICAL SCH (13:30)
--- NOTE | 2017-09-13 14:16 | EKG ---
Date Performed: 09/13/2017 Time Performed: 12:08:22 PTAGE: 57 years EKG: Marked baseline artifact Sinus rhythm WITH FIRST DEGREE AV BLOCK Nonspecific ST and T wave abnormalities ABNORMAL ECG No significant joseph e from prior electrocardiogram. PREVIOUS TRACING : 09/13/2017 05.59 DOCTOR: Pedro Jerry Interpretating Date/Time 09/13/2017 14:14:24
[2017-09-13] MEDS ORDERED: METO25TA3 PO (16:03)
[2017-09-13] MEDS ORDERED: PANT40TA3 PO (16:03)
--- NOTE | 2017-09-13 16:18 | HHI.PR ---
Addendum to Inpatient Note Addendum Reason: Additional Documentation Additional Information back from stress test- results reveiwed by Cardiology- cleared for DC went into see patient and discuss and to DC patient and set up PCP ff up through CM- not in the room informed staff to look for patient May have left Eileen Olson MD Sep 13, 2017 16:18
--- NOTE | 2017-09-13 20:18 | EKG ---
Date Performed: 09/13/2017 Time Performed: 05:59:44 PTAGE: 57 years EKG: Sinus rhythm MODERATE T-WAVE ABNORMALITY, CONSIDER LATERAL ISCHEMIA ABNORMAL ECG PREVIOUS TRACING : 09/12/2017 18.57 Since the previous tracing, no significant change noted DOCTOR: Tip Wilson Interpretating Date/Time 09/13/2017 20:17:21
--- NOTE | 2017-09-13 20:39 | EKG ---
Date Performed: 09/12/2017 Time Performed: 18:57:35 PTAGE: 57 years EKG: Sinus rhythm POSSIBLE LEFT ATRIAL ENLARGEMENT SEPTAL MYOCARDIAL INFARCTION MODERATE T-WAVE ABNORMALITY, CONSIDER LATERAL ISCHEMIA ABNORMAL ECG PREVIOUS TRACING : 06/04/2014 13.39 Since the previous tracing, no significant change noted DOCTOR: Tip Wilson Interpretating Date/Time 09/13/2017 20:37:58
== END 2017-09-13 17:30 | disposition home or self-care (01) ==
LOC: NED 18:07 → NEDA 09-13 00:23 → NEDH 09-13 05:44 → NEPFCDU 09-13 15:03
PROVIDERS: ADMIT Internal Medicine; ATTEND Internal Medicine
DX: R07.89 Other chest pain (principal); I11.9 Hypertensive heart disease without heart failure; R74.8 Abnormal levels of other serum enzymes; I25.10 Atherosclerotic heart disease of native coronary artery without angina pectoris; I44.0 Atrioventricular block, first degree; R94.31 Abnormal electrocardiogram [ECG] [EKG]; M54.6 Pain in thoracic spine; M79.604 Pain in right leg; M79.605 Pain in left leg; R05 Cough; Z95.1 Presence of aortocoronary bypass graft; Z79.899 Other long term (current) drug therapy; Z79.82 Long term (current) use of aspirin; Z59.0 Homelessness; Z95.2 Presence of prosthetic heart valve
CPT/HCPCS: 71045; 78452; 80053; 80061; 81001; 82550; 83690; 84484; 85025; 85610; 85730; 93005; 93017; 99285; A9502; G0378; J2785

== ENCOUNTER 2017-10-09 11:27 | Inpatient (IN) | payer SELFPAY ==
[~2017-10-09] VITALS: Ht 154.9 cm; Wt 80.6 kg
[2017-10-09] VITALS (9 sets, daily range): BP systolic 112–136; BP diastolic 71–91; PULSE 76–81; RESP 16–24; TEMP 98; O2SAT 89–100
[~2017-10-09 11:27] MED LIST changes: -ACET325T11 PO; +ASPI81TA16 PO; -CIPR500T4 PO; -CYCL-36 PO; -FERR324T4 PO; -FOLI1 PO; -METO25 PO; +METO25TA3 PO; +PANT40TA3 PO; -PRIL40CA PO; +PSYCH MEDS; -SM A81CH CHEW
[2017-10-09 12:21] LABS: AUTOMATED NEUTROPHIL # 4.1 TH/MM3 (1.8-7.7); BASOPHIL # 0.1 TH/MM3 (0-0.2); BASOPHIL % 0.9 % (0.0-2.0); EOSINOPHIL # 0.2 TH/MM3 (0-0.4); EOSINOPHIL % 3.2 % (0.0-4.0); HEMATOCRIT 42.9 % (35.0-46.0); HEMOGLOBIN 14.7 GM/DL (11.6-15.3); LYMPH % 21.7 % (9.0-44.0); LYMPHOCYTE # 1.4 TH/MM3 (1.0-4.8); MEAN CELL VOLUME 100.7 FL (80.0-100.0); MEAN CORPUSCULAR HEMOGLOBIN 34.5 PG (27.0-34.0); MEAN CORPUSCULAR HGB CONC 34.2 % (32.0-36.0); MEAN PLATELET VOLUME 9.3 FL (7.0-11.0); MONO % 12.2 % (0.0-8.0); MONOCYTE # 0.8 TH/MM3 (0-0.9); PLATELET COUNT 242 TH/MM3 (150-450); RED BLOOD COUNT 4.26 MIL/MM3 (4.00-5.30); RED CELL DISTRIBUTION WIDTH 12.8 % (11.6-17.2); WHITE BLOOD COUNT 6.7 TH/MM3 (4.0-11.0)
[2017-10-09 12:24] LABS: PROTHROMBIN TIME - PATIENT 9.7 SEC (9.8-11.6)
[2017-10-09 12:43] LABS: ALKALINE PHOSPHATASE 78 U/L (45-117); TOTAL BILIRUBIN ADULT 0.5 MG/DL (0.2-1.0); TOTAL PROTEIN 8.4 GM/DL (6.4-8.2); TROPONIN I 0.09 NG/ML (0.02-0.05)
--- NOTE | 2017-10-09 12:52 | RADRPT ---
EXAM DATE/TIME: 10/09/2017 12:01 [facility] COMPARISON: CHEST SINGLE AP, September 12, 2017, 22:57. INDICATIONS : Chest pain. MEDICAL HISTORY : Cardiovascular disease. Hypertension SURGICAL HISTORY : CABG. ENCOUNTER: Initial ACUITY: 1 day PAIN SCORE: 10/10 LOCATION: Bilateral chest FINDINGS: Frontal and lateral views of the chest demonstrate a normal-sized cardiac silhouette in this patient post median sternotomy and valve replacement. No pleural effusion, airspace consolidation, or pneumot horax is visualized. There is mild fissural thickening. The bones and soft tissues demonstrate no acu te finding. CONCLUSION: Mild fissural thickening can be seen with mild edema. Otherwise, no acute finding is identified. Bro Carpenter MD on October 09, 2017 at 12:50 Board Certified Radiologist. This report was verified electronically.
[2017-10-09 12:54] LABS: ALBUMIN 3.6 GM/DL (3.4-5.0); ALT (GPT) 9 U/L (10-53); AST (GOT) 13 U/L (15-37); BICARBONATE 23.8 MEQ/L (21.0-32.0); BLOOD UREA NITROGEN 17 MG/DL (7-18); CALCIUM 9.1 MG/DL (8.5-10.1); CHLORIDE 109 MEQ/L (98-107); CREATININE 0.88 MG/DL (0.50-1.00); GLOMERULAR FILTRATION RATE 80 ML/MIN (>89); GLUCOSE,RANDOM 86 MG/DL (74-106); MAGNESIUM 2.1 MG/DL (1.5-2.5); SODIUM (NA) 140 MEQ/L (136-145)
--- NOTE | 2017-10-09 13:41 | PD ---
HPI Chief Complaint: Chest Pain Time Seen by Provider: 13:27 Travel History International Travel<30 days: No Contact w/Intl Traveler<30days: No Traveled to known affect area: No History of Present Illness HPI 57-year-old female came to the emergency room with history of chest pain that started last night. Patient points the pain to the center of her chest and runs across both sides. No aggravating or relieving factors identified as per the patient. Patient is quite minimal with her history and I have to coax and ask couple times in order to get the answer. She had a workup started in triage when she was initially triaged and the blood test results are back. Vital signs are within normal limits. Patient says she took one baby aspirin this morning. She has had valve replacement done in 2012 at [facility] in [place]. She denies of any stents or bypass surgery done. Currently patient does not have a food quality tester that she follows up with. [facility] Past Medical History Narrative Medical List of her past medical, surgical, social and family history is reviewed from the nursing note. Anxiety: No Cardiovascular Problems: Yes Diminished Hearing: No Hypertension: Yes Reproductive: Yes (PELVIC MASS DX 12/01/05 NEVER FOLLOWED UP WITH DOCTOR) ?: Not Menopausal: Yes : 3 Para: 3 Tubal Ligation: Yes Past Surgical History Appendectomy: No Cardiac Surgery: Yes (HEART VALVE REPLACEMENT) Social History Alcohol Use: No Tobacco Use: Yes (PACK DAILY) Substance Use: No Allergies-Medications (Allergen,Severity, Reaction): Coded Allergies: No Known Allergies (Verified Allergy, Unknown, 09/13/17) Comments No known drug allergies Reported Meds & Prescriptions Reported Meds & Active Scripts Active Reported Aspirin Adult Low Strength (Aspirin) 81 Mg Tabdr 81 Mg PO DAILY Narrative Medication List of her home medications reviewed from the nursing note Review of Systems Except as stated in HPI: all other systems reviewed are Neg Cardiovascular: Positive: Chest Pain or Discomfort Respiratory: Positive: Shortness of Breath Physical Exam Narrative GENERAL: Awake, alert, moderate distress SKIN: Focused skin assessment warm/dry. HEAD: Atraumatic. Normocephalic. EYES: Pupils equal and round. No scleral icterus. No injection or drainage. ENT: No nasal bleeding or discharge. Mucous membranes pink and moist. NECK: Trachea midline. No JVD. CARDIOVASCULAR: Regular rate and rhythm. No murmur appreciated. RESPIRATORY: Respiratory distress, tachypnea. Clear to auscultation. Breath sounds equal bilaterally. GASTROINTESTINAL: Abdomen soft, non-tender, nondistended. Hepatic and splenic margins not palpable. MUSCULOSKELETAL: No obvious deformities. No clubbing. No cyanosis. No edema. NEUROLOGICAL: Awake and alert. No obvious cranial nerve deficits. Motor grossly within normal limits. Normal speech. PSYCHIATRIC: Appropriate mood and affect; insight and judgment normal. Data Data Last Documented VS Vital Signs Date Time Temp Pulse Resp B/P (MAP) Pulse Ox O2 Delivery O2 Flow Rate FiO2 10/09/17 11:36 98.0 81 22 131/73 (92) 96 Orders Orders Electrocardiogram (10/09/17 11:38) B-Type Natriuretic Peptide (10/09/17 11:38) Ckmb (Isoenzyme) Profile (10/09/17 11:38) Complete Blood Count With Diff (10/09/17 11:38) Comprehensive Metabolic Panel (10/09/17 11:38) Magnesium (Mg) (10/09/17 11:38) Prothrombin Time / Inr (Pt) (10/09/17 11:38) Act Partial Throm Time (Ptt) (10/09/17 11:38) Troponin I (10/09/17 11:38) Lipase (10/09/17 11:38) Chest, Pa & Lat (10/09/17 11:38) CKMB (10/09/17 11:45) CKMB% (10/09/17 11:45) Aspirin Chew (Aspirin Chew) (10/09/17 13:45) Morphine Inj (Morphine Inj) (10/09/17 13:45) Ondansetron Inj (Zofran Inj) (10/09/17 13:45) Heparin Inj (Heparin Inj) (10/09/17 13:45) Heparin Inj (Heparin Inj) (10/09/17 19:45) Heparin Inj (Heparin Inj) (10/09/17 19:45) Heparin-D5w 25,000 U/250 Ml (Heparin-D5w (10/09/17 13:45) Act Partial Throm Time (Ptt) (10/09/17 20:33) Occult Blood (Hemoccult) Stool (10/09/17 13:33) Troponin I (10/09/17 16:00) Troponin I (10/09/17 20:00) Admit Order (Ed Use Only) (10/09/17 13:51) Labs Laboratory Tests Test 10/09/17 11:45 White Blood Count 6.7 TH/MM3 Red Blood Count 4.26 MIL/MM3 Hemoglobin 14.7 GM/DL Hematocrit 42.9 % Mean Corpuscular Volume 100.7 FL Mean Corpuscular Hemoglobin 34.5 PG Mean Corpuscular Hemoglobin Concent 34.2 % Red Cell Distribution Width 12.8 % Platelet Count 242 TH/MM3 Mean Platelet Volume 9.3 FL Neutrophils (%) (Auto) 62.0 % Lymphocytes (%) (Auto) 21.7 % Monocytes (%) (Auto) 12.2 % Eosinophils (%) (Auto) 3.2 % Basophils (%) (Auto) 0.9 % Neutrophils # (Auto) 4.1 TH/MM3 Lymphocytes # (Auto) 1.4 TH/MM3 Monocytes # (Auto) 0.8 TH/MM3 Eosinophils # (Auto) 0.2 TH/MM3 Basophils # (Auto) 0.1 TH/MM3 CBC Comment DIFF FINAL Differential Comment Prothrombin Time 9.7 SEC Prothromb Time International Ratio 1.0 RATIO Activated Partial Thromboplast Time 25.5 SEC D-Dimer Quantitative (PE/DVT) 0.52 MG/L FEU Blood Urea Nitrogen 17 MG/DL Creatinine 0.88 MG/DL Random Glucose 86 MG/DL Total Protein 8.4 GM/DL Albumin 3.6 GM/DL Calcium Level 9.1 MG/DL Magnesium Level 2.1 MG/DL Alkaline Phosphatase 78 U/L Aspartate Amino Transf (AST/SGOT) 13 U/L Alanine Aminotransferase (ALT/SGPT) 9 U/L Total Bilirubin 0.5 MG/DL Sodium Level 140 MEQ/L Potassium Level 4.2 MEQ/L Chloride Level 109 MEQ/L Carbon Dioxide Level 23.8 MEQ/L Anion Gap 7 MEQ/L Estimat Glomerular Filtration Rate 80 ML/MIN Total Creatine Kinase 124 U/L Creatine Kinase MB 1.7 NG/ML Troponin I 0.09 NG/ML B-Type Natriuretic Peptide 58 PG/ML Lipase 148 U/L MDM Medical Decision Making Medical Screen Exam Complete: Yes Emergency Medical Condition: Yes Medical Record Reviewed: Yes Interpretation(s) Twelve-lead EKG was reviewed by me. Normal sinus rhythm, left axis deviation, lateral T-wave inversions. Heart rate of 79 bpm. Differential Diagnosis ACS, non-STEMI, congestive heart failure Narrative Course 1:40 PM blood test results suggestive of slight increase in troponin. Have started her on heparin bolus and drip. Patient is given 2 baby aspirin to chew and some morphine for pain relief. Patient will require admission. Awaiting for the hospitalist to call back. Critical Care Narrative Aggregate critical care time was 30 minutes. Time to perform other separately billable procedures was not included in the critical care time. My time did not include minutes spent treating any other patients simultaneously or on activities that did not directly contribute to the patient's treatment. The services I provided to this patient were to treat and/or prevent clinically significant deterioration that could result in: Non-STEMI, chest pain, heparin bolus and drip I provided critical care services requiring my management, as noted below: Chart data review, documentation time, medication orders and management, vital sign assessments/reviewing monitor data, ordering and reviewing lab tests, ordering and interpreting/reviewing x-rays and diagnostic studies, care of the patient and discussion of the patient with the admitting physicians. Procedures EKG Prior to Arrival: No Diagnosis Primary Impression: Chest pain Qualified Codes: R07.9 - Chest pain, unspecified Additional Impression: Non-STEMI (non-ST elevated myocardial infarction) Admitting Information Admitting Physician Requests: Admit Scripts Cephalexin (Cephalexin) 500 Mg Cap 500 MG PO Q12H for Infection for 7 Days, #14 CAP 0 Refills Prov: Mohsen Shepherd MD 10/10/17 Metoprolol Tartrate (Metoprolol Tartrate) 25 Mg Tab 12.5 MG PO Q12HR for Blood Pressure Management for 30 Days, #30 TAB Prov: Mohsen Shepherd MD 10/10/17 Pravastatin (Pravachol) 40 Mg Tab 40 MG PO HS for Cholesterol Management for 30 Days, #30 TAB Prov: Mohsen Shepherd MD 10/10/17 Lucian Wing MD Oct 09, 2017 13:41
[2017-10-09] MEDS ORDERED: MORPHINE SULFATE 4 MG/ML INJ IV PUSH ONE (13:45)
[2017-10-09] MEDS ORDERED: ASPIRIN 81 MG CHEW TAB CHEW ONE (13:45)
[2017-10-09] MEDS ORDERED: ONDANSETRON HCL 4 MG/2 ML VIAL IV PUSH ONE (13:45)
[2017-10-09] MEDS ORDERED: HEPARIN SODIUM - IV 10,000 UNITS/10 ML VIAL IV ONE (13:45)
[2017-10-09] MEDS: HEPARIN-D5W 25,000 U/250 ML 250 ML IV PRN (14:01)
--- NOTE | 2017-10-09 14:15 | HHI.HP ---
[facility]ician No Primary Care Physician Admission Diagnosis Chest pain, non-STEMI Diagnoses: (1) Chest pain Diagnosis: Principal Chief Complaint: chest pain Travel History International Travel<30 Days: No Contact w/Intl Traveler <30 Da: No Traveled to Known Affected Are: No History of Present Illness patient is a 57 y/o female with prior history of valve replacement, bioprosthetic in addition to probable single vessel bypass, according to the records,presented to ER with chest pain. she was admitted to this hospital about a month ago and had a stress test and cardiology evaluation. she was discharged home after medical treatment was recommended by cardiology. she says that she wasn't feeling good last night and she took some motrin. this morning when she woke up she started to have some chest pain. pain is midsternal with no radiation and no association with nausea, vomiting, diaphoresis or sob. Review of Systems Constitutional: DENIES: Fever, Weight loss, Chills, Night Sweats Eyes: DENIES: Blurred vision, Diplopia, Vision loss, Double Vision Ears, nose, mouth, throat: DENIES: Tinnitus, Vertigo, Throat pain, Epistaxis Respiratory: DENIES: Apneas, Cough, Snoring, Wheezing, Hemoptysis, Sputum production, Shortness of breath Cardiovascular: COMPLAINS OF: Chest pain, DENIES: Palpitations, Syncope, Dyspnea on Exertion, PND, Lower Extremity Edema, Orthopnea, Claudication Gastrointestinal: DENIES: Abdominal pain, Black stools, Bloody stools, Constipation, Diarrhea, Nausea, Vomiting, Difficulty Swallowing, Anorexia Genitourinary: DENIES: Urinary frequency, Urgency, Hematuria, Dysuria Musculoskeletal: DENIES: Joint pain, Muscle aches, Stiffness, Joint Swelling Integumentary: DENIES: Rash Neurologic: DENIES: Abnormal gait, Headache, Localized weakness, Paresthesias, Seizures, Speech Problems, Tremor, Poor Balance Psychiatric: DENIES: Anxiety, Confusion, Mood changes, Depression, Hallucinations, Agitation, Suicidal Ideation, Homicidal Ideation, Delusions Past Family Social History Past Medical History valve replacement/ hypertension Past Surgical History valve replacement Reported Medications aspirin Allergies: Coded Allergies: No Known Allergies (Verified Allergy, Unknown, 09/13/17) Active Ordered Medications Inpatient Medications Aspirin (Aspirin Chew) 162 mg ONCE ONCE CHEW Last administered on 10/09/17at 13 :45; Start 10/09/17 at 13:45; Stop 10/09/17 at 13:47; Status DC Heparin Sodium (Porcine) (Heparin Inj) 2,500 units UNSCH PRN IV APTT 25 TO 39; Start 10/09/17 at 19:45 Heparin Sodium/ Dextrose 250 ml @ 10 mls/hr TITRATE PRN IV Coagulation Management Last administered on 10/09/17at 14:01; Start 10/09/17 at 13:45 Morphine Sulfate (Morphine Inj) 4 mg ONCE ONCE IV PUSH Last administered on at 13:45; Start 10/09/17 at 13:45; Stop 10/09/17 at 13:47; Status DC Ondansetron HCl (Zofran Inj) 4 mg ONCE ONCE IV PUSH Last administered on at 13:45; Start 10/09/17 at 13:45; Stop 10/09/17 at 13:47; Status DC Social History smokes a pack in two days- doesn't drink. Physical Exam Vital Signs Vital Signs Date Time Temp Pulse Resp B/P (MAP) Pulse Ox O2 Delivery O2 Flow Rate FiO2 10/09/17 14:04 92 Nasal Cannula 2.00 10/09/17 14:02 79 24 112/87 (95) 89 10/09/17 11:36 98.0 81 22 131/73 (92) 96 Physical Exam GENERAL: This is a well-nourished, well-developed patient, in no apparent distress. SKIN: No rashes, ecchymoses or lesions. Cool and dry. HEAD: Atraumatic. Normocephalic. No temporal or scalp tenderness. EYES: Pupils equal round and reactive. Extraocular motions intact. No scleral icterus. No injection or drainage. ENT: Nose without bleeding, purulent drainage or septal hematoma. Throat without erythema, tonsillar hypertrophy or exudate. Uvula midline. Airway patent. NECK: Trachea midline. No JVD or lymphadenopathy. Supple, nontender, no meningeal signs. CARDIOVASCULAR: Regular rate and rhythm without murmurs, gallops, or rubs. RESPIRATORY: Clear to auscultation. Breath sounds equal bilaterally. No wheezes , rales, or rhonchi. GASTROINTESTINAL: Abdomen soft, non-tender, nondistended. No hepato-splenomegaly , or palpable masses. No guarding. MUSCULOSKELETAL: Extremities without clubbing, cyanosis, or edema. No joint tenderness, effusion, or edema noted. No calf tenderness. Negative Homans sign bilaterally. NEUROLOGICAL: Awake and alert. Cranial nerves II through XII intact. Motor and sensory grossly within normal limits. Five out of 5 muscle strength in all muscle groups. Normal speech. Laboratory Laboratory Tests Test 10/09/17 11:45 White Blood Count 6.7 Red Blood Count 4.26 Hemoglobin 14.7 Hematocrit 42.9 Mean Corpuscular Volume 100.7 Mean Corpuscular Hemoglobin 34.5 Mean Corpuscular Hemoglobin Concent 34.2 Red Cell Distribution Width 12.8 Platelet Count 242 Mean Platelet Volume 9.3 Neutrophils (%) (Auto) 62.0 Lymphocytes (%) (Auto) 21.7 Monocytes (%) (Auto) 12.2 Eosinophils (%) (Auto) 3.2 Basophils (%) (Auto) 0.9 Neutrophils # (Auto) 4.1 Lymphocytes # (Auto) 1.4 Monocytes # (Auto) 0.8 Eosinophils # (Auto) 0.2 Basophils # (Auto) 0.1 CBC Comment DIFF FINAL Differential Comment Prothrombin Time 9.7 Prothromb Time International Ratio 1.0 Activated Partial Thromboplast Time 25.5 Blood Urea Nitrogen 17 Creatinine 0.88 Random Glucose 86 Total Protein 8.4 Albumin 3.6 Calcium Level 9.1 Magnesium Level 2.1 Alkaline Phosphatase 78 Aspartate Amino Transf (AST/SGOT) 13 Alanine Aminotransferase (ALT/SGPT) 9 Total Bilirubin 0.5 Sodium Level 140 Potassium Level 4.2 Chloride Level 109 Carbon Dioxide Level 23.8 Anion Gap 7 Estimat Glomerular Filtration Rate 80 Total Creatine Kinase 124 Creatine Kinase MB 1.7 Troponin I 0.09 B-Type Natriuretic Peptide 58 Lipase 148 Result Diagram: 10/09/17 1145 10/09/17 1145 Imaging Last Impressions Chest X-Ray 10/09/17 1138 Signed Impressions: Service Date/Time: Monday, October 09, 2017 12:01 - CONCLUSION: Mild fissural thickening can be seen with mild edema. Otherwise, no acute finding is identified. Bro Carpenter MD EKG; sinus rhythm with T-inversion in lateral leads. Caprini VTE Risk Assessment Caprini VTE Risk Assessment: Mod/High Risk (score >= 2) Caprini Risk Assessment Model Point Value = 1 Point Value = 2 Point Value = 3 Point Value = 5 Age 41-60 Minor surgery BMI > 25 kg/m2 Swollen legs Varicose veins or History of unexplained or recurrent spontaneous Oral contraceptives or hormone replacement Sepsis (< 1 month) Serious lung disease, including pneumonia (< 1 month) Abnormal pulmonary function Acute myocardial infarction Congestive heart failure (< 1 month) History of inflammatory bowel disease Medical patient at bed rest Age 61-74 Arthroscopic surgery Major open surgery (> 45 min) Laparoscopic surgery (> 45 min) Malignancy Confined to bed (> 72 hours) Immobilizing plaster cast Central venous access Age >= 75 History of VTE Family history of VTE Factor V Leiden Prothrombin [id number] Lupus anticoagulant Anticardiolipin antibodies Elevated serum homocysteine Heparin-induced thrombocytopenia Other congenital or acquired thrombophilia Stroke (< 1 month) Elective arthroplasty Hip, pelvis, or leg fracture Acute spinal cord injury (< 1 month) Prophylaxis Regimen Total Risk Factor Score Risk Level Prophylaxis Regimen 0-1 Low Early ambulation 2 Moderate Order ONE of the following: *Sequential Compression Device (SCD) *Heparin 5000 units SQ BID 3-4 Higher Order ONE of the following medications: *Heparin 5000 units SQ TID *Enoxaparin/Lovenox 40 mg SQ daily (WT < 150 kg, CrCl > 30 mL/min) *Enoxaparin/Lovenox 30 mg SQ daily (WT < 150 kg, CrCl > 10-29 mL/min) *Enoxaparin/Lovenox 30 mg SQ BID (WT < 150 kg, CrCl > 30 mL/min) AND/OR *Sequential Compression Device (SCD) 5 or more Highest Order ONE of the following medications: *Heparin 5000 units SQ TID (Preferred with Epidurals) *Enoxaparin/Lovenox 40 mg SQ daily (WT < 150 kg, CrCl > 30 mL/min) *Enoxaparin/Lovenox 30 mg SQ daily (WT < 150 kg, CrCl > 10-29 mL/min) *Enoxaparin/Lovenox 30 mg SQ BID (WT < 150 kg, CrCl > 30 mL/min) AND *Sequential Compression Device (SCD) Assessment and Plan Assessment and Plan A/P - chest pain with history of valve replacement. patient had a stress test about a month ago with anterolateral ischemia- evaluated by cardiology at the time who recommended medical treatment. will trend the troponin and check the [id number] with aspirin- started on Heparin drip- consult cardiology. -hypertension; will verify the home meds- continue to monitor BP. -DVT prophylaxis ; on Heparin drip. Discussed Condition With ER physician and the patient. Physician Certification 2 Midnight Certification Type: Admission for Inpatient Services Order for Inpatient Services The services are ordered in accordance with Medicare regulations or non- Medicare payer requirements, as applicable. In the case of services not specified as inpatient-only, they are appropriately provided as inpatient services in accordance with the 2-midnight benchmark. Estimated LOS (days): 2 days is the estimated time the patient will need to remain in the hospital, assuming treatment plan goals are met and no additional complications. Post-Hospital Plan: Home Problem Qualifiers (1) Chest pain: Qualified Codes: R07.9 - Chest pain, unspecified Maddy Allen MD Oct 09, 2017 14:15
[2017-10-09] MEDS ORDERED: NITROGLYCERIN 2% OINT 1 GM PACKET TOPICAL ONE (14:30)
[2017-10-09] MEDS ORDERED: ONDANSETRON HCL 4 MG/2 ML VIAL IV PUSH PRN (14:30)
[2017-10-09] MEDS: SODIUM CHLOR 0.9% 1000 ML INJ 1,000 ML IV SCH (15:14)
[2017-10-09] MEDS ORDERED: HEPARIN SODIUM - IV 10,000 UNITS/10 ML VIAL IV PRN ×2 (19:45)
[2017-10-09] MEDS: MORPHINE SULFATE 2 MG/ML SYRINGE IV PUSH PRN (21:03)
[2017-10-10] VITALS (28 sets, daily range): BP systolic 93–124; BP diastolic 54–85; PULSE 68–95; RESP 16–18; TEMP 97.5–98.5; O2SAT 92–94
[2017-10-10] MEDS: MORPHINE SULFATE 2 MG/ML SYRINGE IV PUSH PRN ×4 (03:09→21:00)
[2017-10-10] MEDS: SODIUM CHLOR 0.9% 1000 ML INJ 1,000 ML IV SCH ×2 (03:10→13:52)
[2017-10-10] MEDS: METOPROLOL TARTRATE 25 MG TAB PO SCH ×2 (08:33→21:00)
[2017-10-10] MEDS: ASPIRIN EC 81 MG TABEC PO SCH (08:33)
--- NOTE | 2017-10-10 09:48 | MB ---
cc: ThomasAri Ivette JC DATE: 10/09/2017 CHIEF COMPLAINT: Chest pain. HISTORY OF PRESENT ILLNESS: Kim Fortune is a pleasant 57-year-old female who presented to [facility] due to chest pain. The patient was previously here about a month ago and underwent stress testing, which showed possible anterior apical ischemia. At that time, she was seen by Dr. Adamson and due to the area appearing to be mostly fixed, she was recommended medical management. Apparently, the night before admission, she was not feeling well and took some Motrin and this morning she woke up with saying that she had some chest pain. Chest pain is midsternal with no radiation. She denies diaphoresis or shortness of breath with the episode. In seeing her, she states that the pain medication has been taking away her chest pain. She was given a nitroglycerin patch and this did not seem to take away her chest pain. She was noted to have a mild elevated troponin and so I was asked to see her for further considerations. PAST MEDICAL HISTORY: 1. Hypertension. 2. Coronary artery disease. PAST SURGICAL HISTORY: 1. Aortic valve replacement for unknown cause. 2. Believed to have single vessel bypass of unknown vessel. ALLERGIES: NO KNOWN DRUG ALLERGIES. MEDICATIONS: Aspirin 81 mg daily. FAMILY HISTORY: Denies premature coronary artery disease and sudden cardiac within the family. SOCIAL HISTORY: The patient smokes half a pack of cigarettes daily. Denies alcohol or drug abuse. REVIEW OF SYSTEMS: Fourteen systems were reviewed including osteopathic, pertinent positives and negatives above, otherwise negative. PHYSICAL EXAMINATION: VITAL SIGNS: Temperature 98.0, heart rate 78, blood pressure 136/91, respirations 20, pulse oximetry 100% on 2 liters. GENERAL: The patient appears well, in no acute distress. Alert, awake and oriented x 3. HEENT: Extraocular muscles intact. Mucous membranes moist. NECK: Supple. No JVD at 45 degrees. No carotid bruits heard bilaterally. Carotid upstroke is brisk in nature. HEART: Regular rate and rhythm. Positive first and second heart sounds, with no murmurs, gallops or rubs. Sternotomy is well healed. LUNGS: Clear to auscultation bilaterally. No wheezes, rales or rhonchi. ABDOMEN: Soft, nontender, nondistended, no organomegaly noted. EXTREMITIES: Show no clubbing, cyanosis or edema. Femoral distal pulses intact bilaterally. NEUROLOGIC: No focal deficits. SKIN: Warm, dry and intact. OSTEOPATHIC: No kyphoscoliosis, lordosis or paraspinal tender points. LABORATORY DATA: Hemoglobin 14.7, hematocrit 42.9, platelets 242. Potassium 4.2, BUN 17, creatinine 0.88. Troponin 0.09. BNP 58. ELECTROCARDIOGRAM (10/09/2017 AT 1147): Sinus rhythm, possible left atrial enlargement, nonspecific ST-T wave changes, unable to rule out ischemia, no significant change from 09/13/2017. IMPRESSION: 1. Atypical chest pain. 2. Coronary artery disease. 3. History of aortic valve replacement for unknown reason. 4. Tobacco abuse. 5. Hypertension. 6. Minimally elevated troponin. RECOMMENDATIONS: 1. Ms. Fortune previously presented with chest pain and underwent stress testing. Overall, I agree with Dr. Adamson's review that this is mostly a fixed defect apically. 2. She was to be treated medically, but currently is not on any other medications other than aspirin and I am unsure why. 3. I did offer consideration of cardiac catheterization, as she did present once again with chest pain, but at this time, she would like to avoid all procedures, as she is overall worried about this as she lives alone. I explained that it was not surgery, but this would be a procedure and she should be able to be awake and talk to me throughout it, but overall she wants to avoid this. 4. We will attempt to treat her medically and I explained to her the importance of staying on her medications. 5. We will check a 2-D echo to look at her overall left ventricular function, cardiac structure and possible valvulopathies. 6. We will watch her overnight and make sure that she does not have significant elevation of her troponins. If she does, I will discuss with her further ischemic evaluation versus medical management. 7. Overall, I believe that her chest pain is more musculoskeletal in nature and she most likely has a chronic elevation minimally of her troponins. 8. Further recommendations will be made based on the hospital course. 9. I spoke to her for greater than 3 minutes about tobacco cessation. Thank you for allowing me to see Kim Fortune. If there are any questions, please do not hesitate to call. DO RAMAN Baez , 11:32 PM , 12:14 AM
--- NOTE | 2017-10-10 11:49 | PD.CARD.PN ---
Subjective Subjective Remarks No events overnight Feels well overall Objective Medications Current Medications Medications (Trade) Dose Ordered Sig/Tere Route Start Time Stop Time Status Last Admin (Heparin Inj) 5,000 units UNSCH PRN IV 10/09/17 19:45 (Heparin Inj) 2,500 units UNSCH PRN IV 10/09/17 19:45 10/09/17 22:31 Heparin Sodium/ Dextrose 250 ml @ 10 mls/hr TITRATE PRN IV 10/09/17 13:45 10/09/17 14:01 (Morphine Inj) 2 mg Q4H PRN IV PUSH 10/09/17 14:30 10/10/17 08:33 Sodium Chloride 1,000 ml @ 75 mls/hr [id number] IV 10/09/17 14:30 10/10/17 03:10 (Zofran Inj) 4 mg Q8HR PRN IV PUSH 10/09/17 14:30 (Ecotrin Ec) 81 mg DAILY PO 10/10/17 09:00 10/10/17 08:33 (Lopressor) 12.5 mg Q12HR PO 10/10/17 09:00 10/10/17 08:33 Vital Signs / I&O Vital Signs Date Time Temp Pulse Resp B/P (MAP) Pulse Ox O2 Delivery O2 Flow Rate FiO2 10/10/17 08:50 92 21 10/10/17 08:30 97.5 95 18 116/85 (95) 94 10/10/17 06:00 76 10/10/17 05:00 72 10/10/17 04:00 72 10/10/17 03:00 83 10/10/17 03:00 98.4 83 16 124/80 (95) 92 10/10/17 02:00 78 10/10/17 01:00 92 10/10/17 00:00 83 10/10/17 00:00 98.2 83 16 93/54 (67) 92 10/09/17 23:00 79 10/09/17 22:00 78 10/09/17 21:00 76 10/09/17 20:40 98.0 81 16 136/82 (100) 95 10/09/17 20:24 10/09/17 20:08 78 18 116/71 (86) 95 Room Air 10/09/17 17:19 78 24 136/91 (106) 100 Nasal Cannula 2.00 10/09/17 15:11 92 Nasal Cannula 2.00 10/09/17 14:04 92 Nasal Cannula 2.00 10/09/17 14:02 79 24 112/87 (95) 89 I/O 10/09/17 10/09/17 10/09/17 10/10/17 10/10/17 10/10/17 07:00 15:00 23:00 07:00 15:00 23:00 Intake Total 0 ml Output Total 425 ml Balance -425 ml Intake Oral 0 ml Output Urine Total 425 ml # Voids 1 # Bowel Movements 0 Physical Exam GENERAL: NAD, AAOx3 SKIN: Warm and dry. HEAD: Atraumatic. Normocephalic. EYES: Pupils equal and round. No scleral icterus. No injection or drainage. ENT: No nasal bleeding or discharge. Mucous membranes pink and moist. NECK: Trachea midline. No JVD. CARDIOVASCULAR: Regular rate and rhythm. 07/01 crescendo-decrescendo murmur to the RSB RESPIRATORY: No accessory muscle use. Clear to auscultation. Breath sounds equal bilaterally. GASTROINTESTINAL: Abdomen soft, non-tender, nondistended. Hepatic and splenic margins not palpable. MUSCULOSKELETAL: Extremities without clubbing, cyanosis, or edema. No obvious deformities. NEUROLOGICAL: Awake and alert. No obvious cranial nerve deficits. Motor grossly within normal limits. Five out of 5 muscle strength in the arms and legs. Normal speech. PSYCHIATRIC: Appropriate mood and affect; insight and judgment normal. Laboratory Laboratory Tests Test 10/09/17 11:45 10/09/17 15:40 10/09/17 21:47 10/10/17 04:38 White Blood Count 6.7 TH/MM3 Red Blood Count 4.26 MIL/MM3 Hemoglobin 14.7 GM/DL Hematocrit 42.9 % Mean Corpuscular Volume 100.7 FL Mean Corpuscular Hemoglobin 34.5 PG Mean Corpuscular Hemoglobin Concent 34.2 % Red Cell Distribution Width 12.8 % Platelet Count 242 TH/MM3 Mean Platelet Volume 9.3 FL Neutrophils (%) (Auto) 62.0 % Lymphocytes (%) (Auto) 21.7 % Monocytes (%) (Auto) 12.2 % Eosinophils (%) (Auto) 3.2 % Basophils (%) (Auto) 0.9 % Neutrophils # (Auto) 4.1 TH/MM3 Lymphocytes # (Auto) 1.4 TH/MM3 Monocytes # (Auto) 0.8 TH/MM3 Eosinophils # (Auto) 0.2 TH/MM3 Basophils # (Auto) 0.1 TH/MM3 CBC Comment DIFF FINAL Differential Comment Prothrombin Time 9.7 SEC Prothromb Time International Ratio 1.0 RATIO Activated Partial Thromboplast Time 25.5 SEC 37.9 SEC 50.5 SEC D-Dimer Quantitative (PE/DVT) 0.52 MG/L FEU Blood Urea Nitrogen 17 MG/DL Creatinine 0.88 MG/DL Random Glucose 86 MG/DL Total Protein 8.4 GM/DL Albumin 3.6 GM/DL Calcium Level 9.1 MG/DL Magnesium Level 2.1 MG/DL Alkaline Phosphatase 78 U/L Aspartate Amino Transf (AST/SGOT) 13 U/L Alanine Aminotransferase (ALT/SGPT) 9 U/L Total Bilirubin 0.5 MG/DL Sodium Level 140 MEQ/L Potassium Level 4.2 MEQ/L Chloride Level 109 MEQ/L Carbon Dioxide Level 23.8 MEQ/L Anion Gap 7 MEQ/L Estimat Glomerular Filtration Rate 80 ML/MIN Total Creatine Kinase 124 U/L Creatine Kinase MB 1.7 NG/ML Troponin I 0.09 NG/ML 0.07 NG/ML 0.07 NG/ML B-Type Natriuretic Peptide 58 PG/ML Lipase 148 U/L Test 10/10/17 10:34 Activated Partial Thromboplast Time 44.6 SEC Assessment and Plan Problem List: (1) Elevated troponin ICD Codes: R74.8 - Abnormal levels of other serum enzymes (2) Chest pain ICD Codes: R07.9 - Chest pain, unspecified Status: Acute (3) H/O aortic valve replacement ICD Codes: Z95.4 - H/O aortic valve replacement Status: Acute (4) Hypertension ICD Codes: I10 - Hypertension Status: Acute (5) Obesity ICD Codes: E66.9 - Obesity Status: Acute Assessment and Plan 1) Atypical chest pain Overall agree with Dr. Adamson's review of the nuclear, mostly a fixed defect apically Offered cardiac catheterization, but patient wants to continue on medical management Previously started on medications for medical management, but never got them refilled at the clinic in [place] 2) 2D echo pending 3) If no problem with the 2D echo, then cardiovascularly stable to be discharged home ASA/BB/Statin therapy 4) Tobacco cessation Problem Qualifiers (1) Chest pain: Qualified Codes: R07.9 - Chest pain, unspecified Ari Thomas DO Oct 10, 2017 11:48
[2017-10-10] MEDS: HEPARIN-D5W 25,000 U/250 ML 250 ML IV PRN (13:57)
--- NOTE | 2017-10-10 15:15 | EKG ---
Date Performed: 10/09/2017 Time Performed: 11:47:03 PTAGE: 57 years EKG: Sinus rhythm POSSIBLE LEFT ATRIAL ENLARGEMENT MODERATE T-WAVE ABNORMALITY, CONSIDER LATERAL ISCHEMIA ABNORMAL ECG Since the PREVIOUS TRACING , no significant change noted PREVIOUS TRACIN09/13/2017 12.08 DOCTOR: Steve Abreu Interpretating Date/Time 10/10/2017 15:13:09
--- NOTE | 2017-10-10 15:16 | EKG ---
Date Performed: 10/09/2017 Time Performed: 15:34:42 PTAGE: 57 years EKG: Sinus rhythm WITH SINUS ARRHYTHMIA WITH FIRST DEGREE AV BLOCK MODERATE T-WAVE ABNORMALITY, CONSIDER ANTEROLATERAL ISCHEMIA ABNORMAL ECG INTERPRETATION BASED ON A DEFAULT AGE OF 40 YEARS Since the PREVIOUS TRACING , no significant change noted PREVIOUS TRACIN10/09/2017 11.47 DOCTOR: Steve Abreu Interpretating Date/Time 10/10/2017 15:13:21
[2017-10-10] MEDS ORDERED: PRAV40TA PO (16:00)
[2017-10-10] MEDS ORDERED: METO25TA3 PO (16:00)
[2017-10-10] MEDS ORDERED: CEPH500C PO (16:01)
--- NOTE | 2017-10-10 19:13 | ECHRPT ---
Indication: CHEST PAIN, HX PORCINE AOV CONCLUSIONS Normal left ventricular size. Mild concentric left ventricular hypertrophy. The left ventricular systolic function is low normal with an estimated ejection fraction in the rang e of 50- 55%. The left atrial size is mildly dilated. The right atrial size is mildly dilated. No atrial level shunt is demonstrated by color flow Doppler interrogation. The bioprosthetic aortic valve is normal to two-dimensional, color flow and Doppler interrogation. There is trace tricuspid valve regurgitation. The estimated pulmonary arterial pressure is 42 mmHg. BP: 124 / 80 HR: 83 Rhythm: Sinus MEASUREMENTS (Male / Female) Normal Values Technical Quality:Fair 2D ECHO LV Diastolic Diameter PLAX 4.3 cm 4.2 - 5.9 / 3.9 - 5.3 cm LV Systolic Diameter PLAX 2.6 cm IVS Diastolic Thickness 1.1 cm 0.6 - 1.0 / 0.6 - 0.9 cm LVPW Diastolic Thickness 1.1 cm 0.6 - 1.0 / 0.6 - 0.9 cm LV Relative Wall Thickness 0.5 RV Internal Dim ED PLAX 3.1 cm LVOT Diameter 2.3 cm Aortic Root Diameter 3.4 cm LA Systolic Diameter LX 3.4 cm 3.0 - 4.0 / 2.7 - 3.8 cm M-MODE AV Cusp Separation MM 1.6 cm DOPPLER AV Peak Velocity 240.0 cm/s AV Peak Gradient 23.0 mmHg AV Mean Gradient 13.0 mmHg AV Velocity Time Integral 45.5 cm LVOT Peak Velocity 104.0 cm/s LVOT Peak Gradient 4.3 mmHg LVOT Velocity Time Integral 20.7 cm AV Area Cont Eq vti 1.9 cm AV Area Cont Eq pk 1.8 cm Mitral E Point Velocity 82.4 cm/s Mitral A Point Velocity 65.2 cm/s Mitral E to A Ratio 1.3 LV E' Lateral Velocity 7.4 cm/s Mitral E to LV E' Lateral Ratio 11.1 LV E' Septal Velocity 5.5 cm/s Mitral E to LV E' Septal Ratio 15.1 TR Peak Velocity 285.0 cm/s TR Peak Gradient 32.5 mmHg Right Atrial Pressure 10.0 mmHg Pulmonary Artery Systolic Pressu 42.5 mmHg Right Ventricular Systolic Press 42.5 mmHg PV Peak Velocity 79.7 cm/s PV Peak Gradient 2.5 mmHg FINDINGS LEFT VENTRICLE Normal left ventricular size. Mild concentric left ventricular hypertrophy. The left ventricular systolic function is low normal with an estimated ejection fraction in the rang e of 50- 55%. RIGHT VENTRICLE Normal right ventricular size and systolic function. LEFT ATRIUM The left atrial size is mildly dilated. RIGHT ATRIUM The right atrial size is mildly dilated. ATRIAL SEPTUM No atrial level shunt is demonstrated by color flow Doppler interrogation. AORTA The aortic root and proximal ascending aorta are not well visualized. MITRAL VALVE Structurally normal mitral valve. No mitral valve stenosis or regurgitation. AORTIC VALVE The porcine aortic valve is normal to two-dimensional, color flow and Doppler interrogation. TRICUSPID VALVE There is trace tricuspid valve regurgitation. The estimated pulmonary arterial pressure is 42 mmHg. PULMONARY VALVE No pulmonary valve regurgitation or stenosis. VESSELS The inferior vena cava is normal in size. PERICARDIUM No pericardial effusion. Cathie Palm MD, FACC (Electronically Signed) Final Date:10 October 2017 19:12
[2017-10-10] MEDS: CEPHALEXIN MONOHYDRATE 500 MG CAP PO SCH (21:00)
[2017-10-10] MEDS ORDERED: PRAVASTATIN SOD 40 MG TAB PO SCH (21:00)
--- NOTE | 2017-10-10 21:08 | HHI.PR ---
Subjective Remarks Patient resting comfortably, denies any CP today. Says she has not slept well in many days due to homeless situation. Objective Vitals Vital Signs Date Time Temp Pulse Resp B/P (MAP) Pulse Ox O2 Delivery O2 Flow Rate FiO2 10/10/17 18:00 76 10/10/17 17:00 74 10/10/17 16:01 74 10/10/17 15:15 98.1 85 18 105/80 (88) 93 10/10/17 15:00 82 10/10/17 14:00 72 10/10/17 13:00 72 10/10/17 12:01 74 10/10/17 11:45 98.1 85 18 105/80 (88) 93 10/10/17 11:00 76 10/10/17 10:00 76 10/10/17 09:00 68 10/10/17 08:50 92 21 10/10/17 08:30 97.5 95 18 116/85 (95) 94 10/10/17 08:00 94 10/10/17 07:00 77 10/10/17 06:00 76 10/10/17 05:00 72 10/10/17 04:00 72 10/10/17 03:00 83 10/10/17 03:00 98.4 83 16 124/80 (95) 92 10/10/17 02:00 78 10/10/17 01:00 92 10/10/17 00:00 83 10/10/17 00:00 98.2 83 16 93/54 (67) 92 10/09/17 23:00 79 10/09/17 22:00 78 I/O 10/09/17 10/09/17 10/09/17 10/10/17 10/10/17 10/10/17 07:00 15:00 23:00 07:00 15:00 23:00 Intake Total 0 ml 1527 ml 700 ml Output Total 425 ml 550 ml Balance -425 ml 1527 ml 150 ml Intake Oral 0 ml 700 ml IV Total 1527 ml Output Urine Total 425 ml 550 ml # Voids 1 2 # Bowel Movements 0 0 Result Diagram: 10/09/17 1145 10/09/17 1145 Objective Remarks GENERAL: Well-nourished, well-developed patient., somewhat disheveled SKIN: Warm and dry. HEAD: Normocephalic. EYES: No scleral icterus. No injection or drainage. NECK: Supple, trachea midline. No JVD or lymphadenopathy. CARDIOVASCULAR: Regular rate and rhythm without murmurs, gallops, or rubs. RESPIRATORY: Breath sounds equal bilaterally. No accessory muscle use. GASTROINTESTINAL: Abdomen soft, non-tender, nondistended. EXTREMITIES: No cyanosis, trace edema NEUROLOGICAL: Awake, alert, and oriented x 3. Non-focal. A/P Problem List: (1) Chest pain ICD Code: R07.9 - Chest pain, unspecified Status: Acute Assessment and Plan Chest Pain h/o Valve Replacement Positive stress test one month ago, anterolateral ischemia, medical mgmt recommended at that time Medical management still recommended Metoprolol added to medications Echocardiogram completed, awaiting report for clearance to discharge Appreciate Cardiology consult Upper Respiratory Infection Cough for over a week Keflex started Dyslipidemia Pravastatin started DVT Prophylaxis Heparin Discharge Planning Likely discharge in the a.m. (awaiting ECHO results) Problem Qualifiers (1) Chest pain: Qualified Codes: R07.9 - Chest pain, unspecified oMhsen Shepherd MD Oct 10, 2017 21:08
[2017-10-11] VITALS (12 sets, daily range): BP systolic 120–138; BP diastolic 80–82; PULSE 60–78; RESP 16–18; TEMP 97.9–98.6; O2SAT 92–96
[2017-10-11] MEDS: MORPHINE SULFATE 2 MG/ML SYRINGE IV PUSH PRN (03:36)
[2017-10-11] MEDS: SODIUM CHLOR 0.9% 1000 ML INJ 1,000 ML IV SCH (03:41)
[2017-10-11] MEDS: CEPHALEXIN MONOHYDRATE 500 MG CAP PO SCH (09:37)
[2017-10-11] MEDS: METOPROLOL TARTRATE 25 MG TAB PO SCH (09:37)
[2017-10-11] MEDS: ASPIRIN EC 81 MG TABEC PO SCH (09:37)
--- NOTE | 2017-10-11 15:08 | PD.CARD.PN ---
Subjective Subjective Remarks Patient was seen earlier today, late entry note No events overnight Feels well overall, no chest pain Objective Vital Signs / I&O Vital Signs Date Time Temp Pulse Resp B/P (MAP) Pulse Ox O2 Delivery O2 Flow Rate FiO2 10/11/17 10:00 96 21 10/11/17 10:00 72 10/11/17 09:00 72 10/11/17 08:00 70 10/11/17 07:00 97.9 78 18 138/82 (100) 96 10/11/17 07:00 60 10/11/17 06:00 70 10/11/17 05:00 70 10/11/17 04:00 70 10/11/17 03:30 97.9 76 16 132/80 (97) 92 10/11/17 03:00 72 10/11/17 02:00 70 10/11/17 01:00 70 10/11/17 00:00 74 10/11/17 00:00 98.6 73 16 120/80 (93) 92 10/10/17 23:00 74 10/10/17 22:00 76 10/10/17 21:00 80 10/10/17 20:00 76 10/10/17 20:00 98.5 81 16 116/77 (90) 94 10/10/17 19:00 78 10/10/17 18:00 76 10/10/17 17:00 74 10/10/17 16:01 74 10/10/17 15:15 98.1 85 18 105/80 (88) 93 I/O 10/10/17 10/10/17 10/10/17 10/11/17 10/11/17 10/11/17 07:00 15:00 23:00 07:00 15:00 23:00 Intake Total 0 ml 1527 ml 700 ml 240 ml Output Total 425 ml 550 ml 950 ml Balance -425 ml 1527 ml 150 ml -710 ml Intake Oral 0 ml 700 ml 240 ml IV Total 1527 ml Output Urine Total 425 ml 550 ml 950 ml # Voids 2 # Bowel Movements 0 0 0 Physical Exam GENERAL: NAD, AAOx3 SKIN: Warm and dry. HEAD: Atraumatic. Normocephalic. EYES: Pupils equal and round. No scleral icterus. No injection or drainage. ENT: No nasal bleeding or discharge. Mucous membranes pink and moist. NECK: Trachea midline. No JVD. CARDIOVASCULAR: Regular rate and rhythm. 1/6 crescendo-decrescendo murmur to the RSB RESPIRATORY: No accessory muscle use. Clear to auscultation. Breath sounds equal bilaterally. GASTROINTESTINAL: Abdomen soft, non-tender, nondistended. Hepatic and splenic margins not palpable. MUSCULOSKELETAL: Extremities without clubbing, cyanosis, or edema. No obvious deformities. NEUROLOGICAL: Awake and alert. No obvious cranial nerve deficits. Motor grossly within normal limits. Five out of 5 muscle strength in the arms and legs. Normal speech. PSYCHIATRIC: Appropriate mood and affect; insight and judgment normal. Laboratory Laboratory Tests Test 10/11/17 09:45 Activated Partial Thromboplast Time 40.2 SEC Assessment and Plan Problem List: (1) Elevated troponin ICD Codes: R74.8 - Abnormal levels of other serum enzymes (2) Chest pain ICD Codes: R07.9 - Chest pain, unspecified Status: Acute (3) H/O aortic valve replacement ICD Codes: Z95.4 - H/O aortic valve replacement Status: Acute (4) Hypertension ICD Codes: I10 - Hypertension Status: Acute (5) Obesity ICD Codes: E66.9 - Obesity Status: Acute Assessment and Plan 1) Atypical chest pain Overall agree with Dr. Adamson's review of the nuclear, mostly a fixed defect apically Offered cardiac catheterization, but patient wants to continue on medical management Previously started on medications for medical management, but never got them refilled at the clinic in [place] 2) EF 50-55%, bioprosthetic AVR with normal function 3) Cardiovascularly stable for discharge ASA/BB/Statin therapy 4) Tobacco cessation Problem Qualifiers (1) Chest pain: Qualified Codes: R07.9 - Chest pain, unspecified Ari Thomas DO Oct 11, 2017 15:08
--- NOTE | 2017-10-11 17:01 | HHI.DS ---
Discharge Summary Admission Date Oct 09, 2017 at 13:53 Discharge Date: Oct 11, 2017 Admitting Diagnosis Chest pain, non-STEMI (1) Chest pain ICD Code: R07.9 - Chest pain, unspecified Diagnosis: Principal Status: Acute Procedures none Brief History - From Admission patient is a 57 y/o female with prior history of valve replacement, bioprosthetic in addition to probable single vessel bypass, according to the records,presented to ER with chest pain. she was admitted to this hospital about a month ago and had a stress test and cardiology evaluation. she was discharged home after medical treatment was recommended by cardiology. she says that she wasn't feeling good last night and she took some motrin. this morning when she woke up she started to have some chest pain. pain is midsternal with no radiation and no association with nausea, vomiting, diaphoresis or sob. CBC/BMP: 10/09/17 1145 10/09/17 1145 Significant Findings Laboratory Tests Test 10/09/17 11:45 10/09/17 15:40 10/09/17 21:47 10/10/17 04:38 Mean Corpuscular Volume 100.7 FL (80.0-100.0) Mean Corpuscular Hemoglobin 34.5 PG (27.0-34.0) Monocytes (%) (Auto) 12.2 % (0.0-8.0) Prothrombin Time 9.7 SEC (9.8-11.6) D-Dimer Quantitative (PE/DVT) 0.52 MG/L FEU (0.00-0.50) Total Protein 8.4 GM/DL (6.4-8.2) Aspartate Amino Transf (AST/SGOT) 13 U/L (15-37) Alanine Aminotransferase (ALT/SGPT) 9 U/L (10-53) Chloride Level 109 MEQ/L (98-107) Estimat Glomerular Filtration Rate 80 ML/MIN (>89) Troponin I 0.09 NG/ML (0.02-0.05) 0.07 NG/ML (0.02-0.05) 0.07 NG/ML (0.02-0.05) Activated Partial Thromboplast Time 37.9 SEC (24.3-30.1) 50.5 SEC (24.3-30.1) Test 10/10/17 10:34 10/11/17 09:45 Activated Partial Thromboplast Time 44.6 SEC (24.3-30.1) 40.2 SEC (24.3-30.1) PE at Discharge GENERAL: Well-nourished, well-developed patient., somewhat disheveled SKIN: Warm and dry. HEAD: Normocephalic. EYES: No scleral icterus. No injection or drainage. NECK: Supple, trachea midline. No JVD or lymphadenopathy. CARDIOVASCULAR: Regular rate and rhythm without murmurs, gallops, or rubs. RESPIRATORY: Breath sounds equal bilaterally. No accessory muscle use. GASTROINTESTINAL: Abdomen soft, non-tender, nondistended. EXTREMITIES: No cyanosis, trace edema NEUROLOGICAL: Awake, alert, and oriented x 3. Non-focal. Hospital Course 57-year-old female who presented with evidence of an NSTEMI. She had previously had a fixed defect noted on testing but elected for medical management. She was offered a heart catheterization during this stay, but she again elects for medical management. She did complain of a cough and was given Keflex for treatment. She was given refills of her medicine with minor adjustments. Echocardiogram showed stable performance with ejection fraction of 55%. She has requested to follow-up here if any symptoms return that cannot be managed as an outpatient. Pt Condition on Discharge: Good Discharge Disposition: Discharge Home Discharge Time: <= 30 minutes Discharge Instructions DIET: Follow Instructions for: Heart Healthy Diet Activities you can perform: Regular-No Restrictions Mohsen Shepherd MD Oct 11, 2017 17:01
== END 2017-10-11 12:03 | disposition home or self-care (01) | DRG 282 ==
LOC: NEPE 11:27 → UNDOADMIN 13:53 → NEDA 13:53 → HCIS 19:32
PROVIDERS: ADMIT Family Medicine; ATTEND Family Medicine
DX: I21.4 Non-ST elevation (NSTEMI) myocardial infarction (principal); Z95.4 Presence of other heart-valve replacement; I10 Essential (primary) hypertension; J06.9 Acute upper respiratory infection, unspecified; I25.10 Atherosclerotic heart disease of native coronary artery without angina pectoris; R19.00 Intra-abdominal and pelvic swelling, mass and lump, unspecified site; F17.210 Nicotine dependence, cigarettes, uncomplicated; E66.9 Obesity, unspecified; Z68.33 Body mass index [BMI] 33.0-33.9, adult; Z79.899 Other long term (current) drug therapy
CPT/HCPCS: 71046; 80053; 82550; 82552; 83690; 83735; 83880; 84484; 85025; 85379; 85610; 85730; 93005; 93306; 96374; 96375; J1644; J2270; J2405; J7030